=== PATIENT | male | born 1965 | race Caucasian/White ===

== ENCOUNTER 2016-10-13 10:35 | Emergency (ER) | payer MEDICAID ==
[~2016-10-13] VITALS: Ht 188 cm; Wt 85.5 kg
[~2016-10-13 10:35] MED LIST: ACCUTES19 XX; AMIT50TA13 PO; DOCU1CAP39 PO; FLUC100T41 PO; KCL20 PO; LEVEMIR SQ; LEVO150T7 PO; LYRI75CA PO; NOVOLOGSS SQ; PRIL10CA PO; SUCR1S PO
[2016-10-13 10:36] VITALS: BP 125/77; PULSE 90; RESP 15; TEMP 98; O2SAT 98
[2016-10-13] MEDS ORDERED: PREG300 PO (11:29)
[2016-10-13] MEDS ORDERED: CARA1TAB6 PO (11:29)
[2016-10-13] MEDS ORDERED: COLA100C3 PO (11:29)
[2016-10-13] MEDS ORDERED: AMIT50TA3 PO (11:29)
[2016-10-13] MEDS ORDERED: POTA-163 PO (11:29)
[2016-10-13] MEDS ORDERED: LEVEMIR SQ (11:29)
[2016-10-13] MEDS ORDERED: LEVO150T7 PO (11:29)
[2016-10-13] MEDS ORDERED: PANT20 PO (11:29)
[2016-10-13] MEDS ORDERED: NOVOINJ3 SQ (11:29)
--- NOTE | 2016-10-13 11:35 | PD ---
HPI Chief Complaint: Laceration/Skin Injury Time Seen by Provider: 11:35 Travel History International Travel<30 days: No Contact w/Intl Traveler<30days: No Traveled to known affect area: No History of Present Illness HPI 50-year-old male presents to the emergency Department with complaint of a mall wounds to his left foot that he cannot get the bleeding to stop. He dropped a cup on his foot yesterday and has tried applying pressure with continued bleeding. Reports seeing up-to-date on his tetanus sensation. Denies anticoagulants. Denies paresthesias, loss of sensation, decreased range motion , decreased strength to the affected extremity. No known allergies. History of diabetes and peripheral neuropathy. No other modifying factors or associated signs and symptoms. PFSH Past Medical History Arthritis: Yes Cancer: No Cardiovascular Problems: No Diabetes: Yes Endocrine: Yes Gastrointestinal Disorders: Yes (gastroparesis, GERD) GERD: Yes Genitourinary: No Hiatal Hernia: No Immune Disorder: No Musculoskeletal: Yes (CHRONIC RIGHT SHOULDER PAIN) Neurologic: No Psychiatric: No Respiratory: No Thyroid Disease: No Ulcer: No Past Surgical History Abdominal Surgery: No Cardiac Surgery: No Ear Surgery: No Endocrine Surgery: No Eye Surgery: No Genitourinary Surgery: No Oral Surgery: No Pacemaker: No Thoracic Surgery: No Tonsillectomy: Yes Social History Alcohol Use: Yes (1-2 DRINKS/NIGHT(rum and diet coke)) Tobacco Use: No Substance Use: Yes (marijuana) Allergies-Medications (Allergen,Severity, Reaction): Coded Allergies: No Known Allergies (Verified , 10/13/16) Reported Meds & Prescriptions Reported Meds & Active Scripts Active Reported Carafate (Sucralfate) 1 Gm Tab 1 Gm PO TID On empty stomach Lyrica (Pregabalin) 300 Mg Cap 300 Mg PO BID Potassium Chloride ER (Potassium Chloride) 20 Meq Tab 40 Meq PO DAILY Protonix (Pantoprazole Sodium) 20 Mg Tab 20 Mg PO DAILY Levothyroxine (Levothyroxine Sodium) 150 Mcg Tab 150 Mcg PO DAILY Levemir Inj (Insulin Detemir) 1,000 unit/ 10 ML Vial 30 Units SQ BID Do not mix with any other Insulin. Novolog Flexpen Inj (Insulin Aspart) 300 Unit/3 Ml Pen 10 Units SQ TIDAC Colace (Docusate Sodium) 100 Mg Cap 100 Mg PO BID Amitriptyline (Amitriptyline HCl) 50 Mg Tab 50 Mg PO HS Review of Systems Except as stated in HPI: all other systems reviewed are Neg Physical Exam Narrative GENERAL: Well-nourished, well-developed male patient, in no acute distress SKIN: Warm and dry. Dorsal aspect of left foot with less than 0.5 cm bleeding wound that is without erythema, edema. The left lower extremity is supple and non-tense with 2+ pedal pulses and sensory intact and without erythema or edema. HEAD: Atraumatic. Normocephalic. EYES: Pupils equal and round. No scleral icterus. No injection or drainage. ENT: Mucosa pink and moist. Airway patent. NECK: Trachea midline. CARDIOVASCULAR: Regular rate. RESPIRATORY: No accessory muscle use. GASTROINTESTINAL: Rounded. MUSCULOSKELETAL: No obvious deformities. No clubbing. No cyanosis. No edema. NEUROLOGICAL: Awake and alert. Oriented 3. No obvious cranial nerve deficits. Motor grossly within normal limits. Normal speech. PSYCHIATRIC: Appropriate mood and affect; insight and judgment normal. Data Data Last Documented VS Vital Signs Date Time Temp Pulse Resp B/P Pulse Ox O2 Delivery O2 Flow Rate FiO2 10/13/16 10:36 98.0 90 15 125/77 98 MDM Medical Decision Making Medical Screen Exam Complete: Yes Emergency Medical Condition: Yes Medical Record Reviewed: Yes Differential Diagnosis Bleeding from wound, contusion, laceration Narrative Course 50-year-old male with a small less than 0.5 cm wound to the dorsal aspect of the left foot that has continued bleeding since yesterday after dropping a cup on his foot. Denies anticoagulants. Nonadhesive pressure dressing applied. Bleeding controlled. A small amount of blood noted after removal of the adhesive Rusher dressing. Wound seal applied. Bleeding stopped. Nonadhesive dressings given to patient in case bleeding starts again. Patient was monitored in the ER for approximately 15-20 minutes after bleeding stopped without restart of bleeding. Patient verbalizes understanding and agreement with treatment plan. Patient is medically cleared and stable for discharge. Discussed reasons to return to the emergency department. Instructed patient to follow up with primary care provider. Patient agrees with treatment plan. The patients vital signs are stable and the patient is stable for outpatient follow- up and treatment. Patient discharged home, stable and in no acute distress. Diagnosis Primary Impression: Bleeding from wound Referrals: Primary Care Physician Patient Instructions: Acute Wound Care (ED), General Instructions Departure Forms: Tests/Procedures, Work Release Enter return to work date: Oct 14, 2016 Additional Instructions: Follow-up with primary care provider Return to the emergency department immediately with worsening of symptoms Med/Other Pt SpecificInfo: No Change to Meds, No Meds Exist/No RX given Disposition: 01 DISCHARGE HOME Condition: Stable Fozia Lauren Oct 13, 2016 11:35
== END 2016-10-13 12:30 | disposition home or self-care (01) ==
LOC: NETRI 10:35
DX: S91.312A Laceration without foreign body, left foot, initial encounter (principal); E11.42 Type 2 diabetes mellitus with diabetic polyneuropathy; Z79.4 Long term (current) use of insulin; X58.XXXA Exposure to other specified factors, initial encounter; Y93.9 Activity, unspecified; Y92.9 Unspecified place or not applicable; Y99.9 Unspecified external cause status
CPT/HCPCS: 12001

== ENCOUNTER 2017-07-05 11:14 | Inpatient (IN) | payer MEDICAID ==
[2017-07-05] VITALS (7 sets, daily range): BP systolic 94–142; BP diastolic 52–71; PULSE 82–99; RESP 18–30; TEMP 97.4–97.9; O2SAT 96–97
[~2017-07-05] VITALS: Ht 188 cm; Wt 75.5 kg
[~2017-07-05 11:14] MED LIST changes: -ACCUTES19 XX; -AMIT50TA13 PO; +AMIT50TA3 PO; +CARA1TAB6 PO; +COLA100C3 PO; -DOCU1CAP39 PO; -FLUC100T41 PO; -KCL20 PO; -LYRI75CA PO; +NOVOINJ3 SQ; -NOVOLOGSS SQ; +PANT20 PO; +POTA-163 PO; +PREG300 PO; -PRIL10CA PO; -SUCR1S PO
[2017-07-05] MEDS ORDERED: ONDANSETRON HCL 4 MG/2 ML VIAL IVP ONE (11:30)
[2017-07-05] MEDS ORDERED: SODIUM CHLOR 0.9% 1000 ML INJ 1,000 ML IV ONE ×3 (11:30→13:15)
[2017-07-05] MEDS ORDERED: PANTOPRAZOLE SODIUM 40 MG VIAL IV PUSH ONE (11:30)
--- NOTE | 2017-07-05 11:35 | PD ---
HPI Chief Complaint: Diabetic Time Seen by Provider: 11:17 Travel History International Travel<30 days: No Contact w/Intl Traveler<30days: No Traveled to known affect area: No History of Present Illness HPI 51 year old male presents to the emergency department for evaluation of epigastric abdominal pain, hyperglycemia. His at bedside gives most of the information. Patient started with nausea, vomiting yesterday. She gave him peeking soda and water which resolved the vomiting. However, he still nauseated. He reports epigastric abdominal pain, unable to read at this time. Patient states is constant. He denies any fevers or chills. His reports that he has a history of chest pain for the past year, but the patient denies any chest pain this time. He does feel short of breath. Patient's gave him 30 units of Levemir at 9 AM this morning. EMS given 1 L normal saline IV bolus. Patient also has history of pancreatitis with similar symptoms. No radiation of the pain. Patient is in moderate distress, moderate severity. No exacerbating or alleviating factors. His also reports he has been having a dry cough recently. PFSH Past Medical History Arthritis: Yes Cancer: No Cardiovascular Problems: No High Cholesterol: Yes Chest Pain: Yes Diabetes: Yes Patient Takes Glucophage: No Diminished Hearing: No Endocrine: Yes Gastrointestinal Disorders: Yes (gastroparesis, GERD) GERD: Yes Genitourinary: No Hiatal Hernia: No Immune Disorder: No Musculoskeletal: Yes (CHRONIC RIGHT SHOULDER PAIN) Neurologic: No Psychiatric: No Respiratory: No Pancreatitis: Yes Thyroid Disease: Yes Ulcer: No Tetanus Vaccination: Unknown Influenza Vaccination: Yes ?: Not Past Surgical History Abdominal Surgery: No Cardiac Surgery: No Ear Surgery: No Endocrine Surgery: No Eye Surgery: No Genitourinary Surgery: No Oral Surgery: No Pacemaker: No Thoracic Surgery: No Tonsillectomy: Yes Other Surgery: Yes Social History Alcohol Use: No Tobacco Use: No Substance Use: No Allergies-Medications (Allergen,Severity, Reaction): Coded Allergies: No Known Allergies (Verified Adverse Reaction, Unknown, 07/05/17) Reported Meds & Prescriptions Reported Meds & Active Scripts Active Reported Carafate (Sucralfate) 1 Gm Tab 1 Gm PO TID On empty stomach Lyrica (Pregabalin) 300 Mg Cap 300 Mg PO BID Potassium Chloride ER (Potassium Chloride) 20 Meq Tab 40 Meq PO DAILY Protonix (Pantoprazole Sodium) 20 Mg Tab 20 Mg PO DAILY Levothyroxine (Levothyroxine Sodium) 150 Mcg Tab 150 Mcg PO DAILY Levemir Inj (Insulin Detemir) 1,000 unit/ 10 ML Vial 30 Units SQ BID Do not mix with any other Insulin. Novolog Flexpen Inj (Insulin Aspart) 300 Unit/3 Ml Pen 10 Units SQ TIDAC Colace (Docusate Sodium) 100 Mg Cap 100 Mg PO BID Amitriptyline (Amitriptyline HCl) 50 Mg Tab 50 Mg PO HS Review of Systems ROS Limitations: Clinical Condition Except as stated in HPI: all other systems reviewed are Neg Physical Exam Narrative GENERAL: Well-nourished, well-developed male patient, afebrile. Patient is in moderate distress. SKIN: Focused skin assessment warm/dry. HEAD: Normocephalic. Atraumatic. EYES: No scleral icterus. No injection or drainage. NECK: Supple, trachea midline. No JVD or lymphadenopathy. CARDIOVASCULAR: Regular rate and rhythm without murmurs, gallops, or rubs. RESPIRATORY: Breath sounds equal bilaterally. No accessory muscle use. Lungs sounds are clear to auscultation. Patient is tachypneic. GASTROINTESTINAL: Abdomen soft and nondistended. Patient has tenderness to epigastric region. MUSCULOSKELETAL: No cyanosis, or edema. BACK: Nontender without obvious deformity. No CVA tenderness. Data Data Last Documented VS Vital Signs Date Time Temp Pulse Resp B/P (MAP) Pulse Ox O2 Delivery O2 Flow Rate FiO2 07/05/17 11:29 100 Room Air 07/05/17 11:24 87 27 07/05/17 11:18 97.9 98/53 (68) Orders Orders Electrocardiogram (07/05/17 11:25) Lipase (07/05/17 11:25) Troponin I (07/05/17 11:25) Complete Blood Count With Diff (07/05/17 11:25) Comprehensive Metabolic Panel (07/05/17 11:25) Magnesium (Mg) (07/05/17 11:25) Beta Hydroxybutyrate (Acetone) (07/05/17 11:25) Urinalysis - C+S If Indicated (07/05/17 11:25) Chest, Single Ap (07/05/17 ) Blood Gas Venous (Vbg) (07/05/17 11:25) Creatine Kinase (Cpk) (07/05/17 11:25) Sodium Chlor 0.9% 1000 Ml Inj (Ns 1000 M (07/05/17 11:30) Iv Access Insert/Monitor (07/05/17 11:25) Ecg Monitoring (07/05/17 11:25) Oximetry (07/05/17 11:25) Ondansetron Inj (Zofran Inj) (07/05/17 11:30) Oxygen Administration (07/05/17 11:25) Pantoprazole Inj (Protonix Inj) (07/05/17 11:30) Sodium Chlor 0.9% 1000 Ml Inj (Ns 1000 M (07/05/17 12:45) Sodium Bicarbonate 8.4% Inj (Sodium Bica (07/05/17 12:45) Lactic Acid Sepsis Protocol (07/05/17 12:36) Blood Culture (07/05/17 12:36) Vancomycin Inj (Vancomycin Inj) (07/05/17 12:45) Piperacil-Tazo 3.375 Gm Premix (Zosyn 3. (07/05/17 12:45) Information Technology Data Analyst / Telemetry [id number] (07/05/17 12:55) ^ Insert Iv (07/05/17 12:55) Diet Npo (07/05/17 Lunch) Sodium Chlor 0.9% 1000 Ml Inj (Ns 1000 M (07/05/17 12:55) Dext 5%-Nacl 0.9% 1000 Ml Inj (D5w-Ns 10 (07/05/17 12:55) Insulin Human Regular Inj (Novolin R Inj (07/05/17 13:00) Insulin Regular (Iv Infusion) (Novolin R (07/05/17 13:00) Potassium Chlor 40 Meq Premix (Kcl 40 Me (07/05/17 13:00) Potassium Chlor 40 Meq Premix (Kcl 40 Me (07/05/17 13:00) Potassium Chlor 20 Meq Premix (Kcl 20 Me (07/05/17 13:00) Potassium Chlor 20 Meq Premix (Kcl 20 Me (07/05/17 13:00) Potassium Chlor 20 Meq Premix (Kcl 20 Me (07/05/17 13:00) Potassium Chlor 20 Meq Premix (Kcl 20 Me (07/05/17 13:00) Potassium Chlor 20 Meq Premix (Kcl 20 Me (07/05/17 13:00) Potassium Chlor 20 Meq Premix (Kcl 20 Me (07/05/17 13:00) Sodium Bicarbonate 8.4% Inj (Sodium Bica (07/05/17 13:00) Sodium Bicarbonate 8.4% Inj (Sodium Bica (07/05/17 13:00) Sodium Phosphate Inj (Sodium Phosphate I (07/05/17 13:00) Basic Metabolic Panel (Bmp) (07/05/17 17:55) Basic Metabolic Panel (Bmp) (07/05/17 23:55) Basic Metabolic Panel (Bmp) (07/06/17 05:55) Basic Metabolic Panel (Bmp) (07/06/17 11:55) Magnesium (Mg) (07/05/17 17:55) Magnesium (Mg) (07/05/17 23:55) Magnesium (Mg) (07/06/17 05:55) Magnesium (Mg) (07/06/17 11:55) Phosphorus (Po4) (07/05/17 17:55) Phosphorus (Po4) (07/05/17 23:55) Phosphorus (Po4) (07/06/17 05:55) Phosphorus (Po4) (07/06/17 11:55) Beta Hydroxybutyrate (Acetone) (07/05/17 23:55) Beta Hydroxybutyrate (Acetone) (07/06/17 11:55) Potassium, Serum (K) (07/05/17 12:55) Potassium, Serum (K) (07/05/17 13:07) Sodium Chlor 0.9% 1000 Ml Inj (Ns 1000 M (07/05/17 13:15) NPO (07/05/17 13:08) Ct Abd/Pel W/O Iv Contrast (07/05/17 ) Admit Order (Ed Use Only) (07/05/17 13:14) Labs Laboratory Tests Test 07/05/17 11:30 07/05/17 12:00 07/05/17 13:00 White Blood Count 24.5 TH/MM3 Red Blood Count 4.45 MIL/MM3 Hemoglobin 12.9 GM/DL Hematocrit 45.4 % Mean Corpuscular Volume 102.1 FL Mean Corpuscular Hemoglobin 29.0 PG Mean Corpuscular Hemoglobin Concent 28.4 % Red Cell Distribution Width 16.4 % Platelet Count 418 TH/MM3 Mean Platelet Volume 8.8 FL Neutrophils (%) (Auto) 76.5 % Lymphocytes (%) (Auto) 10.4 % Monocytes (%) (Auto) 12.7 % Eosinophils (%) (Auto) 0.1 % Basophils (%) (Auto) 0.3 % Neutrophils # (Auto) 18.7 TH/MM3 Lymphocytes # (Auto) 2.5 TH/MM3 Monocytes # (Auto) 3.1 TH/MM3 Eosinophils # (Auto) 0.0 TH/MM3 Basophils # (Auto) 0.1 TH/MM3 CBC Comment AUTO DIFF Differential Total Cells Counted 100 Neutrophils % (Manual) 71 % Band Neutrophils % 11 % Lymphocytes % 12 % Monocytes % 3 % Neutrophils # (Manual) 20.8 TH/MM3 Metamyelocytes 2 % Myelocytes 1 % Nucleated Red Blood Cells 1 /100 WBC Differential Comment FINAL DIFF MANUAL Toxic Vacuolation Platelet Estimate NORMAL Platelet Morphology Comment NORMAL Blood Urea Nitrogen 75 MG/DL Creatinine 3.25 MG/DL Random Glucose 942 MG/DL Total Protein 8.9 GM/DL Albumin 3.0 GM/DL Calcium Level 8.3 MG/DL Magnesium Level 3.7 MG/DL Alkaline Phosphatase 157 U/L Aspartate Amino Transf (AST/SGOT) 39 U/L Alanine Aminotransferase (ALT/SGPT) 20 U/L Total Bilirubin 0.5 MG/DL Sodium Level 123 MEQ/L Potassium Level 6.7 MEQ/L Chloride Level 86 MEQ/L Carbon Dioxide Level LESS THAN 5.0 MEQ/L Anion Gap 32 MEQ/L Estimat Glomerular Filtration Rate 20 ML/MIN Total Creatine Kinase 201 U/L Troponin I 0.03 NG/ML Lipase 79114 U/L B-Hydroxybutyrate 15.97 MMOL/L Urine Color LIGHT-YELLOW Urine Turbidity CLEAR Urine pH 5.0 Urine Specific [place] 1.018 Urine Protein TRACE mg/dL Urine Glucose (UA) 1000 mg/dL Urine Ketones 80 mg/dL Urine Occult Blood TRACE Urine Nitrite NEG Urine Bilirubin NEG Urine Urobilinogen LESS THAN 2.0 MG/DL Urine Leukocyte Esterase NEG Urine RBC 1 /hpf Urine WBC 2 /hpf Urine Squamous Epithelial Cells <1 /hpf Urine Hyaline Casts 3 /lpf Urine Mucus FEW /lpf Microscopic Urinalysis Comment CULT NOT INDICATED Blood Gas Puncture Site DRAWN BY RN Blood Gas Patient Temperature 98.6 Venous Blood pH 6.97 Venous Blood Partial Pressure CO2 15 mmHg Venous Blood Partial Pressure O2 74 mmHg Venous Blood HCO3 3 mmol/L Venous Blood Oxygen Saturation 84 % Venous Blood Oxygen Content 11.8 Vol % Venous Blood Base Excess -26.3 mmol/L Oxygen Delivery Device ROOM AIR Blood Gas Inspired Oxygen 21 % MDM Medical Decision Making Medical Screen Exam Complete: Yes Emergency Medical Condition: Yes Medical Record Reviewed: Yes Interpretation(s) Last Impressions Chest X-Ray 07/05/17 0000 Signed Impressions: Service Date/Time: Wednesday, July 05, 2017 11:43 - CONCLUSION: 1. Bibasilar densities greater right lower lobe. Dave Cui MD Differential Diagnosis DKA vs. hyperglycemia vs. pancreatitis vs. electrolyte abnormality Narrative Course 51-year-old male presents to the emergency department for hyperglycemia. Patient's given 30 units of Levemir at 9 AM this morning. He received 1 L normal saline IV bolus via EMS. EKG, CBC, CMP, magnesium, CK, troponin, lipase , beta hydroxybutyrate, UA are ordered and pending. VBG is ordered and pending. Patient is given second liter normal saline IV bolus, Zofran 4 mg IV, Protonix 40 mg IV. EKG shows sinus rhythm, no acute ST changes. CBC shows leukocytosis 24.5, band neutrophils 11. VBG shows pH 6.97, bicarbonate 3. UA shows 1000 glucose, 80 ketones. Chest x-ray shows bibasilar densities, greater right lower lobe. Blood cultures 2 and lactic acid are ordered and pending. Patient is given 1 amp of sodium bicarbonate, third liter IV normal saline bolus, vancomycin 1 g, Zosyn 3.375 g IV. Awaiting chemistry results. CMP shows hyponatremia 123, hyperkalemia of 6.7 but moderately hemolysis noted, bicarbonate less than 5, anion gap of 32, BUN 75, creatinine 3.25, glucose 942. Magnesium is 3.7. CK is 201. Troponin is 0.03. Lipase is 10,082. Beta hydroxybutyrate is 15.97. Lactic acid is pending. DKA protocol is started. Patient started on insulin drip. Dr. De Dios, candle wicker, accepted admission. Sepsis Criteria SIRS Criteria (2 or more): RR > 20 or PaCO2 < 32, WBC > 29383, < 4000 or > 10 % bands Sepsis Criteria (SIRS+source): Infect source susp/known Diagnosis Primary Impression: DKA (diabetic ketoacidoses) Qualified Codes: E10.10 - Type 1 diabetes mellitus with ketoacidosis without coma Additional Impressions: Pneumonia Qualified Codes: J18.9 - Pneumonia, unspecified organism Sepsis Qualified Codes: A41.9 - Sepsis, unspecified organism Acute pancreatitis Qualified Codes: K85.90 - Acute pancreatitis without necrosis or infection, unspecified Admitting Information Admitting Physician Requests: Admit Brianna Noland Jul 05, 2017 11:35
--- NOTE | 2017-07-05 11:55 | RADRPT ---
EXAM DATE/TIME: 07/05/2017 11:43 [facility] COMPARISON: No previous studies available for comparison. INDICATIONS : Short of breath. MEDICAL HISTORY : Chronic obstructive pulmonary disease. SURGICAL HISTORY : None. ENCOUNTER: Initial ACUITY: 2 days PAIN SCORE: 0/10 LOCATION: Bilateral chest FINDINGS: A single view of the chest demonstrates bibasilar densities, greater right lower lobe. Heart normal i n size The cardiomediastinal contours are unremarkable. Osseous structures are intact. CONCLUSION: 1. Bibasilar densities greater right lower lobe. Dave Cui MD on July 05, 2017 at 11:53 Board Certified Radiologist. This report was verified electronically.
[2017-07-05 12:14] LABS: BLOOD GAS VENOUS BASE EXCESS -26.3 mmol/L (-2-2); BLOOD GAS VENOUS HCO3 3 mmol/L (22-26); BLOOD GAS VENOUS O2 CONTENT 11.8 Vol % (9.0-17.0); BLOOD GAS VENOUS O2 HGB SAT 84 % (70-76); BLOOD GAS VENOUS PCO2 15 mmHg (44-48); BLOOD GAS VENOUS PO2 74 mmHg (35-40); BLOOD GAS VENOUS pH 6.97 (7.360-7.400); TEMP CORR TO 98.6
[2017-07-05 12:15] LABS: CRITICAL VALUE YES; FIO2 21 %; OXYGEN DEVICE ROOM AIR
[2017-07-05 12:22] LABS: BLOOD, URINE TRACE (NEG); COMMENT (UR) CULT NOT INDICATED; CULTURE IF INDICATED CULT NOT INDICATED; GLUCOSE,URINE 1000 mg/dL (NEG); HYALINE CAST, URINE 3 /lpf (RARE); KETONE, URINE 80 mg/dL (NEG); MUCUS URINE FEW /lpf (OCC); NITRITE,URINE NEG (NEG); SQUAMOUS EPITHELIAL CELL URINE <1 /hpf (0-5); URINE COLOR LIGHT-YELLOW (YELLW/STRAW)
[2017-07-05 12:22] LABS: AUTOMATED NEUTROPHIL # 18.7 TH/MM3 (1.8-7.7); BASOPHIL # 0.1 TH/MM3 (0-0.2); BASOPHIL % 0.3 % (0.0-2.0); EOSINOPHIL % 0.1 % (0.0-4.0); HEMATOCRIT 45.4 % (39.0-51.0); LYMPH % 10.4 % (9.0-44.0); LYMPHOCYTE # 2.5 TH/MM3 (1.0-4.8); MEAN CELL VOLUME 102.1 FL (80.0-100.0); MONO % 12.7 % (0.0-8.0); NEUT % 76.5 % (16.0-70.0); PLATELET COUNT 418 TH/MM3 (150-450); RED BLOOD COUNT 4.45 MIL/MM3 (4.50-5.90); RED CELL DISTRIBUTION WIDTH 16.4 % (11.6-17.2); WHITE BLOOD COUNT 24.5 TH/MM3 (4.0-11.0)
[2017-07-05 12:30] LABS: HEMO FLAGS AUTO DIFF; MEAN CORPUSCULAR HGB CONC 28.4 % (32.0-36.0)
--- NOTE | 2017-07-05 12:42 | PD ---
Physical Exam Narrative I, Dr. Sevilla, have reviewed the advance practice practitioner's documentation and am in agreement, met with the patient face to face, made the diagnosis, and the medical decision making was done by me. *My assessment and Findings: DKA vs. Pneumonia vs. UTI 51yo M who is insulin dependent here with c/o not feeling well for 2 days. Pt was vomiting yesterday and has been having cough for a while. Has a history of pancreatitis but quit alcohol 1 year ago. Pt has not been using his novolog because he has been sick. Took levemir today. GENERAL: 51yo M in moderate distress. SKIN: Dehydrated. HEAD: Atraumatic. Normocephalic. EYES: Pupils equal and round. No scleral icterus. No injection or drainage. ENT: No nasal bleeding or discharge. NECK: Trachea midline. No JVD. CARDIOVASCULAR: Regular rate and rhythm. No murmur appreciated. RESPIRATORY: + accessory muscle use. Kussmaul breathing. Saturating at 100% on RA. GASTROINTESTINAL: Abdomen soft, mild epigastric ttp. No rebound tenderness or guarding. MUSCULOSKELETAL: No obvious deformities. No clubbing. No cyanosis. No edema. NEUROLOGICAL: Awake and alert. No obvious cranial nerve deficits. Motor grossly within normal limits. Normal speech. PSYCHIATRIC: Appropriate mood and affect; insight and judgment normal. Pt was given NS IVF by EVAC and 2 more liters of NS IVF given here. Labs reviewed, leukocytosis at 24.5. H/h 12.9/45.4 which is baseline. Bandemia at 11%. Pt empirically covered with vancomycin and zosyn and blood cultures and lactic acid was drawn. Glucose elevated at 942. BUN/creatinine elevated at 75/ 3.25. Increased anion gap of 32 with CO2 less than 5. Potassium is 6.7 but moderately hemolyzed. Pt most likely have total body hypokalemia and ordered repeat K. In the mean time, will start insulin drip. Repeat K is 5.9. CXR showed bibasilar densities greater right lower lobe[place] [address] a/p showed bibasilar interstitial opacities. No acute inflammatory process. ABG showed pH 6.97. HCO3 is 3. Sodium bicarb ordered. Pt clinically have DKA, pancreatitis and pneumonia. Pt has two large bore peripheral IVs. Accepted to Dr. De Dios's service. Data Data Last Documented VS Vital Signs Date Time Temp Pulse Resp B/P (MAP) Pulse Ox O2 Delivery O2 Flow Rate FiO2 07/05/17 11:29 100 Room Air 07/05/17 11:24 87 27 07/05/17 11:18 97.9 98/53 (68) Orders Orders Electrocardiogram (07/05/17 11:25) Lipase (07/05/17 11:25) Troponin I (07/05/17 11:25) Complete Blood Count With Diff (07/05/17 11:25) Comprehensive Metabolic Panel (07/05/17 11:25) Magnesium (Mg) (07/05/17 11:25) Beta Hydroxybutyrate (Acetone) (07/05/17 11:25) Urinalysis - C+S If Indicated (07/05/17 11:25) Chest, Single Ap (07/05/17 ) Blood Gas Venous (Vbg) (07/05/17 11:25) Creatine Kinase (Cpk) (07/05/17 11:25) Sodium Chlor 0.9% 1000 Ml Inj (Ns 1000 M (07/05/17 11:30) Iv Access Insert/Monitor (07/05/17 11:25) Ecg Monitoring (07/05/17 11:25) Oximetry (07/05/17 11:25) Ondansetron Inj (Zofran Inj) (07/05/17 11:30) Oxygen Administration (07/05/17 11:25) Pantoprazole Inj (Protonix Inj) (07/05/17 11:30) Sodium Chlor 0.9% 1000 Ml Inj (Ns 1000 M (07/05/17 12:45) Sodium Bicarbonate 8.4% Inj (Sodium Bica (07/05/17 12:45) Lactic Acid Sepsis Protocol (07/05/17 12:36) Blood Culture (07/05/17 12:36) Vancomycin Inj (Vancomycin Inj) (07/05/17 12:45) Piperacil-Tazo 3.375 Gm Premix (Zosyn 3. (07/05/17 12:45) Product Design Specialist / Telemetry [id number] (07/05/17 12:55) ^ Insert Iv (07/05/17 12:55) Diet Npo (07/05/17 Lunch) Sodium Chlor 0.9% 1000 Ml Inj (Ns 1000 M (07/05/17 12:55) Dext 5%-Nacl 0.9% 1000 Ml Inj (D5w-Ns 10 (07/05/17 12:55) Insulin Human Regular Inj (Novolin R Inj (07/05/17 13:00) Insulin Regular (Iv Infusion) (Novolin R (07/05/17 13:00) Potassium Chlor 40 Meq Premix (Kcl 40 Me (07/05/17 13:00) Potassium Chlor 40 Meq Premix (Kcl 40 Me (07/05/17 13:00) Potassium Chlor 20 Meq Premix (Kcl 20 Me (07/05/17 13:00) Potassium Chlor 20 Meq Premix (Kcl 20 Me (07/05/17 13:00) Potassium Chlor 20 Meq Premix (Kcl 20 Me (07/05/17 13:00) Potassium Chlor 20 Meq Premix (Kcl 20 Me (07/05/17 13:00) Potassium Chlor 20 Meq Premix (Kcl 20 Me (07/05/17 13:00) Potassium Chlor 20 Meq Premix (Kcl 20 Me (07/05/17 13:00) Sodium Bicarbonate 8.4% Inj (Sodium Bica (07/05/17 13:00) Sodium Bicarbonate 8.4% Inj (Sodium Bica (07/05/17 13:00) Sodium Phosphate Inj (Sodium Phosphate I (07/05/17 13:00) Basic Metabolic Panel (Bmp) (07/05/17 23:55) Basic Metabolic Panel (Bmp) (07/06/17 05:55) Basic Metabolic Panel (Bmp) (07/06/17 11:55) Magnesium (Mg) (07/05/17 23:55) Magnesium (Mg) (07/06/17 05:55) Magnesium (Mg) (07/06/17 11:55) Phosphorus (Po4) (07/05/17 23:55) Phosphorus (Po4) (07/06/17 05:55) Phosphorus (Po4) (07/06/17 11:55) Beta Hydroxybutyrate (Acetone) (07/05/17 23:55) Beta Hydroxybutyrate (Acetone) (07/06/17 11:55) Potassium, Serum (K) (07/05/17 12:55) Sodium Chlor 0.9% 1000 Ml Inj (Ns 1000 M (07/05/17 13:15) NPO (07/05/17 13:08) Ct Abd/Pel W/O Iv Contrast (07/05/17 ) Admit Order (Ed Use Only) (07/05/17 13:14) Labs Laboratory Tests Test 07/05/17 11:30 07/05/17 12:00 07/05/17 13:00 White Blood Count 24.5 TH/MM3 Red Blood Count 4.45 MIL/MM3 Hemoglobin 12.9 GM/DL Hematocrit 45.4 % Mean Corpuscular Volume 102.1 FL Mean Corpuscular Hemoglobin 29.0 PG Mean Corpuscular Hemoglobin Concent 28.4 % Red Cell Distribution Width 16.4 % Platelet Count 418 TH/MM3 Mean Platelet Volume 8.8 FL Neutrophils (%) (Auto) 76.5 % Lymphocytes (%) (Auto) 10.4 % Monocytes (%) (Auto) 12.7 % Eosinophils (%) (Auto) 0.1 % Basophils (%) (Auto) 0.3 % Neutrophils # (Auto) 18.7 TH/MM3 Lymphocytes # (Auto) 2.5 TH/MM3 Monocytes # (Auto) 3.1 TH/MM3 Eosinophils # (Auto) 0.0 TH/MM3 Basophils # (Auto) 0.1 TH/MM3 CBC Comment AUTO DIFF Differential Total Cells Counted 100 Neutrophils % (Manual) 71 % Band Neutrophils % 11 % Lymphocytes % 12 % Monocytes % 3 % Neutrophils # (Manual) 20.8 TH/MM3 Metamyelocytes 2 % Myelocytes 1 % Nucleated Red Blood Cells 1 /100 WBC Differential Comment FINAL DIFF MANUAL Toxic Vacuolation Platelet Estimate NORMAL Platelet Morphology Comment NORMAL Blood Urea Nitrogen 75 MG/DL Creatinine 3.25 MG/DL Random Glucose 942 MG/DL Total Protein 8.9 GM/DL Albumin 3.0 GM/DL Calcium Level 8.3 MG/DL Magnesium Level 3.7 MG/DL Alkaline Phosphatase 157 U/L Aspartate Amino Transf (AST/SGOT) 39 U/L Alanine Aminotransferase (ALT/SGPT) 20 U/L Total Bilirubin 0.5 MG/DL Sodium Level 123 MEQ/L Potassium Level 6.7 MEQ/L 5.9 MEQ/L Chloride Level 86 MEQ/L Carbon Dioxide Level LESS THAN 5.0 MEQ/L Anion Gap 32 MEQ/L Estimat Glomerular Filtration Rate 20 ML/MIN Total Creatine Kinase 201 U/L Troponin I 0.03 NG/ML Lipase 54541 U/L B-Hydroxybutyrate 15.97 MMOL/L Urine Color LIGHT-YELLOW Urine Turbidity CLEAR Urine pH 5.0 Urine Specific [place] 1.018 Urine Protein TRACE mg/dL Urine Glucose (UA) 1000 mg/dL Urine Ketones 80 mg/dL Urine Occult Blood TRACE Urine Nitrite NEG Urine Bilirubin NEG Urine Urobilinogen LESS THAN 2.0 MG/DL Urine Leukocyte Esterase NEG Urine RBC 1 /hpf Urine WBC 2 /hpf Urine Squamous Epithelial Cells <1 /hpf Urine Hyaline Casts 3 /lpf Urine Mucus FEW /lpf Microscopic Urinalysis Comment CULT NOT INDICATED Blood Gas Puncture Site DRAWN BY RN Blood Gas Patient Temperature 98.6 Venous Blood pH 6.97 Venous Blood Partial Pressure CO2 15 mmHg Venous Blood Partial Pressure O2 74 mmHg Venous Blood HCO3 3 mmol/L Venous Blood Oxygen Saturation 84 % Venous Blood Oxygen Content 11.8 Vol % Venous Blood Base Excess -26.3 mmol/L Oxygen Delivery Device ROOM AIR Blood Gas Inspired Oxygen 21 % Lactic Acid Level 2.0 mmol/L MDM Supervised Visit with EMY: Yes Interpretation(s) EKG: NSR 84bpm. LAD. No ST segment elevation or depression. Critical Care Narrative Aggregate critical care time was 40 minutes. Time to perform other separately billable procedures was not included in the critical care time. My time did not include minutes spent treating any other patients simultaneously or on activities that did not directly contribute to the patient's treatment. The services I provided to this patient were to treat and/or prevent clinically significant deterioration that could result in: cardiovascular collapse or . I provided critical care services requiring my management, as noted below: Chart data review, documentation time, medication orders and management, vital sign assessments/reviewing monitor data, ordering and reviewing lab tests, ordering and interpreting/reviewing x-rays and diagnostic studies, care of the patient and discussion of the patient with the admitting physicians. Diagnosis Primary Impression: DKA (diabetic ketoacidoses) Qualified Codes: E10.10 - Type 1 diabetes mellitus with ketoacidosis without coma Additional Impression: Acute pancreatitis Qualified Codes: K85.90 - Acute pancreatitis without necrosis or infection, unspecified Admitting Information Admitting Physician Requests: Admit Luda Sevilla DO Jul 05, 2017 12:42
[2017-07-05] MEDS ORDERED: VANCOMYCIN INJ 1,000 MG in SODIUM CHLOR 0.9% 250 ML INJ 250 ML IV ONE (12:45)
[2017-07-05] MEDS ORDERED: PIPERACIL-TAZO 3.375 GM PREMIX 50 ML IV ONE (12:45)
[2017-07-05] MEDS ORDERED: SODIUM BICARBONATE 8.4% SOLN 50 MEQ/50 ML VIAL IV PUSH PRN ×3 (12:45→13:00)
[2017-07-05 12:51] LABS: ALT (GPT) 20 U/L (12-78); ANION GAP 32 MEQ/L (5-15); AST (GOT) 39 U/L (15-37); BICARBONATE LESS THAN 5.0 MEQ/L (21.0-32.0); BLOOD UREA NITROGEN 75 MG/DL (7-18); CHLORIDE 86 MEQ/L (98-107); GLOMERULAR FILTRATION RATE 20 ML/MIN (>89); MAGNESIUM 3.7 MG/DL (1.5-2.5); TOTAL BILIRUBIN ADULT 0.5 MG/DL (0.2-1.0)
[2017-07-05 12:54] LABS: POTASSIUM 6.7 MEQ/L (3.5-5.1); SODIUM (NA) 123 MEQ/L (136-145)
[2017-07-05] MEDS ORDERED: DEXT 5%-NACL 0.9% 1000 ML INJ 1,000 ML IV SCH (12:55)
[2017-07-05 12:58] LABS: ALKALINE PHOSPHATASE 157 U/L (45-117); BANDS 11 % (0-6); BETA-HYDROXYBUTYRATE 15.97 MMOL/L (0.00-0.39); CORRECTED NUCLEATED RBC 1 /100 WBC (0-0); CREATINE KINASE 201 U/L (39-308); METAMYELOCYTES 2 % (0-1); MYELOCYTES 1 % (0-0); NEUTROPHIL # MANUAL DIFF 20.8 TH/MM3 (1.8-7.7); POLYS (SEG NEUTROPHILS) 71 % (16-70); WBC DIFF SAMPLE 100
[2017-07-05] MEDS ORDERED: INSULIN HUMAN REGULAR 1,000 UNITS/10 ML VIAL IV PUSH ONE ×3 (13:00→18:00)
[2017-07-05] MEDS ORDERED: SODIUM PHOSPHATE INJ 15 MMOL in SODIUM CHLORIDE 0.9% INJ 100 ML IV PRN (13:00)
[2017-07-05] MEDS ORDERED: POTASSIUM CHLOR 20 MEQ PREMIX 100 ML IV PRN ×6 (13:00)
[2017-07-05] MEDS ORDERED: POTASSIUM CHLOR 40 MEQ PREMIX 100 ML IV PRN ×2 (13:00)
[2017-07-05] MEDS ORDERED: INSULIN REGULAR (IV INFUSION) 100 UNITS in SODIUM CHLORIDE 0.9% INJ 99 ML IV PRN (13:00)
[2017-07-05 13:01] LABS: PLATELET ESTIMATE SMEAR NORMAL (NORMAL); PLATELET MORPHOLOGY NORMAL (NORMAL); SCAN/DIFF FINAL DIFF MANUAL
[2017-07-05] MEDS: SODIUM CHLOR 0.9% 1000 ML INJ 1,000 ML IV SCH ×2 (13:22→17:34)
[2017-07-05] MEDS ORDERED: MISCELLANEOUS NURSING INFORMATION XX SCH (13:30)
[2017-07-05] MEDS ORDERED: ACETAMINOPHEN 325 MG TAB PO PRN (13:30)
[2017-07-05] MEDS ORDERED: MAGNESIUM HYDROXIDE SUSP 30 ML CUP PO PRN (13:30)
[2017-07-05] MEDS ORDERED: LACTULOSE SYRUP 20 GM/30 ML CUP PO PRN (13:30)
[2017-07-05] MEDS ORDERED: CHLORHEXIDINE GLUCONATE 2 % 1 PACK (2 CLOTHS) TOP PRN (13:30)
[2017-07-05] MEDS ORDERED: ONDANSETRON HCL 4 MG/2 ML VIAL IV PUSH PRN (13:30)
[2017-07-05] MEDS ORDERED: SENNOSIDES 8.6 MG TAB PO PRN (13:30)
[2017-07-05] MEDS ORDERED: BISACODYL 10 MG SUPP RECTAL PRN (13:30)
[2017-07-05] MEDS ORDERED: SODIUM CHLORIDE 0.9% FLUSH 10 ML FLUSH IV FLUSH PRN (13:30)
[2017-07-05] MEDS ORDERED: RESP: ALBUTEROL 2.5 MG/3 ML NEB (PRN) INH (13:30)
[2017-07-05] MEDS ORDERED: VANCOMYCIN INJ 1,250 MG in SODIUM CHLOR 0.9% 250 ML INJ 250 ML IV ONE (13:45)
--- NOTE | 2017-07-05 13:48 | HHI.HP ---
[facility] Service Critical Care Medicine Primary Care Physician Corbin Jerome, DO Admission Diagnosis DKA, pneumonia, sepsis, acute pancreatitis Diagnosis: (1) Hypermagnesemia Diagnosis: Principal (2) Leukocytosis Diagnosis: Principal (3) Elevated AST (SGOT) Diagnosis: Principal (4) Diabetic gastroparesis Diagnosis: Secondary (5) Diabetic neuropathy Diagnosis: Secondary (6) Acute kidney injury Diagnosis: Principal (7) Hyperkalemia Diagnosis: Principal (8) Elevated beta-hydroxybutyrate Diagnosis: Principal (9) Gastroesophageal reflux disease Diagnosis: Secondary (10) Dyslipidemia Diagnosis: Secondary (11) Community acquired pneumonia Diagnosis: Principal (12) DKA (diabetic ketoacidoses) Diagnosis: Principal (13) Acute pancreatitis Diagnosis: Principal (14) High anion gap metabolic acidosis Diagnosis: Principal (15) Sepsis Diagnosis: Principal Chief Complaint: Infused/altered mental status Travel History International Travel<30 Days: No Contact w/Intl Traveler <30 Da: No Traveled to Known Affected Are: No Sepsis Criteria SIRS Criteria (2 or more): WBC > 37872, < 4000 or > 10% bands Sepsis Criteria (SIRS+source): Infect source susp/known Severe Sepsis (+one): Organ Dysfunction, Acute Oliguria/Renal Failure Criteria Outcome: Meets severe sepsis criteria History of Present Illness 51 year old male. The admission 07/05/2017. Past medical history includes IDDM with neuropathy and gastroparesis, chronic abdominal pain, dyslipidemia, cervical stenosis, osteoarthritis and hypothyroidism. Today he presents to the emergency department for evaluation of epigastric abdominal pain with recent hyperglycemia. His at bedside gives most of the information. The past 40 hours, patient is visiting nausea and vomiting She gave him baking soda and water which resolved the vomiting.ever, the abdominal pain persists. Sharp epigastric radiating to the back. Patient's gave him 30 units of insulin detemir at 9 AM this morning. EMS given 1 L normal saline IV bolus. Patient also has history of pancreatitis with similar symptoms. His chest x-ray revealed bilateral lower lobe pneumonia. Laboratories reveal leukocytosis of 24,000. Macrocytosis. Blood sugar 942. Patient low sodium with a potassium of 6.7.EKG with no T changes. Beta hydroxybutyrate was 16. Patient received a total of 3 L normal saline E Toni and was started on DKA protocol including 8 units insulin 1 and DKA insulin drip per protocol 0.1 units per kilogram per hour. Patient remains confused. CT abdomen/pelvis pending Review of Systems ROS Limitations: Clinical Condition, Altered Mental Status Past Family Social History Allergies: Coded Allergies: No Known Allergies (Verified Allergy, Unknown, 07/05/17) Past Medical History IDDM with neuropathy and gastroparesis Recurrent pancreatitis Cervical stenosis Dyslipidemia currently not on medications due to adverse drug effect Gastroesophageal reflux disease Osteoarthritis Chronic pain syndrome Hypothyroidism Past Surgical History T&A Right rotator cuff repair Reported Medications Carafate (Sucralfate) 1 Gm Tab 1 Gm PO TID On empty stomach Lyrica (Pregabalin) 300 Mg Cap 300 Mg PO BID Potassium Chloride ER (Potassium Chloride) 20 Meq Tab 40 Meq PO DAILY Protonix (Pantoprazole Sodium) 20 Mg Tab 20 Mg PO DAILY Levothyroxine (Levothyroxine Sodium) 150 Mcg Tab 150 Mcg PO DAILY Levemir Inj (Insulin Detemir) 1,000 unit/ 10 ML Vial 30 Units SQ BID Do not mix with any other Insulin. Novolog Flexpen Inj (Insulin Aspart) 300 Unit/3 Ml Pen 10 Units SQ TIDAC Colace (Docusate Sodium) 100 Mg Cap 100 Mg PO BID Amitriptyline (Amitriptyline HCl) 50 Mg Tab 50 Mg PO HS Active Ordered Medications Reviewed in EMR Family History Father is healthy. Mother age 63 of CHF. Brother with bone cancer. Social History 4 years tobacco use at one pack per day quit 30 years ago. Augmentation 2 colic drinks daily. History of THC use. Physical Exam Vital Signs Vital Signs Date Time Temp Pulse Resp B/P (MAP) Pulse Ox O2 Delivery O2 Flow Rate FiO2 07/05/17 11:29 100 Room Air 07/05/17 11:24 87 27 100 Room Air 07/05/17 11:18 97.9 88 25 98/53 (68) Physical Exam GENERAL: 51-year-old male, critically ill currently resting in bed SKIN: Warm and dry. HEAD: Atraumatic. Normocephalic. EYES: Pupils equal and round about 2 mm bilaterally and reactive. No scleral icterus. No injection or drainage. ENT: No nasal bleeding or discharge. Mucous membranes pink and moist. NECK: Trachea midline. No JVD. CARDIOVASCULAR: Tachycardic, RR. S1, S2 no S4. Without murmur RESPIRATORY: Few fine crackles appreciated bilaterally. No wheezing GASTROINTESTINAL: Abdomen soft, tender to palpation epigastric region. Hypoactive bowel sounds. MUSCULOSKELETAL: Extremities without difficulty and peripheral edema. No obvious deformities. NEUROLOGICAL: Awake and alert person only. No obvious cranial nerve deficits. Motor grossly within normal limits. Five out of 5 muscle strength in the arms and legs. Garbled speech. Laboratory Laboratory Tests Test 07/05/17 11:30 07/05/17 12:00 07/05/17 13:00 White Blood Count 24.5 Red Blood Count 4.45 Hemoglobin 12.9 Hematocrit 45.4 Mean Corpuscular Volume 102.1 Mean Corpuscular Hemoglobin 29.0 Mean Corpuscular Hemoglobin Concent 28.4 Red Cell Distribution Width 16.4 Platelet Count 418 Mean Platelet Volume 8.8 Neutrophils (%) (Auto) 76.5 Lymphocytes (%) (Auto) 10.4 Monocytes (%) (Auto) 12.7 Eosinophils (%) (Auto) 0.1 Basophils (%) (Auto) 0.3 Neutrophils # (Auto) 18.7 Lymphocytes # (Auto) 2.5 Monocytes # (Auto) 3.1 Eosinophils # (Auto) 0.0 Basophils # (Auto) 0.1 CBC Comment AUTO DIFF Differential Total Cells Counted 100 Neutrophils % (Manual) 71 Band Neutrophils % 11 Lymphocytes % 12 Monocytes % 3 Neutrophils # (Manual) 20.8 Metamyelocytes 2 Myelocytes 1 Nucleated Red Blood Cells 1 Differential Comment FINAL DIFF MANUAL Toxic Vacuolation Platelet Estimate NORMAL Platelet Morphology Comment NORMAL Blood Urea Nitrogen 75 Creatinine 3.25 Random Glucose 942 Total Protein 8.9 Albumin 3.0 Calcium Level 8.3 Magnesium Level 3.7 Alkaline Phosphatase 157 Aspartate Amino Transf (AST/SGOT) 39 Alanine Aminotransferase (ALT/SGPT) 20 Total Bilirubin 0.5 Sodium Level 123 Potassium Level 6.7 5.9 Chloride Level 86 Carbon Dioxide Level LESS THAN 5.0 Anion Gap 32 Estimat Glomerular Filtration Rate 20 Total Creatine Kinase 201 Troponin I 0.03 Lipase 81762 B-Hydroxybutyrate 15.97 Urine Color LIGHT-YELLOW Urine Turbidity CLEAR Urine pH 5.0 Urine Specific [place] 1.018 Urine Protein TRACE Urine Glucose (UA) 1000 Urine Ketones 80 Urine Occult Blood TRACE Urine Nitrite NEG Urine Bilirubin NEG Urine Urobilinogen LESS THAN 2.0 Urine Leukocyte Esterase NEG Urine RBC 1 Urine WBC 2 Urine Squamous Epithelial Cells <1 Urine Hyaline Casts 3 Urine Mucus FEW Microscopic Urinalysis Comment CULT NOT INDICATED Blood Gas Puncture Site DRAWN BY RN Blood Gas Patient Temperature 98.6 Venous Blood pH 6.97 Venous Blood Partial Pressure CO2 15 Venous Blood Partial Pressure O2 74 Venous Blood HCO3 3 Venous Blood Oxygen Saturation 84 Venous Blood Oxygen Content 11.8 Venous Blood Base Excess -26.3 Oxygen Delivery Device ROOM AIR Blood Gas Inspired Oxygen 21 Date/Time Source Procedure Growth Status 07/05/17 13:00 Blood Peripheral Aerobic Blood Culture Pending Received 07/05/17 13:00 Blood Peripheral Anaerobic Blood Culture Pending Received Result Diagram: 07/05/17 1130 07/05/17 1300 Imaging Microbiology Date/Time Source Procedure Growth Status 07/05/17 13:00 Blood Peripheral Aerobic Blood Culture Pending Received 07/05/17 13:00 Blood Peripheral Anaerobic Blood Culture Pending Received Septic Shock Reassessment Septic shock perfusion: reassessment completed Caprini VTE Risk Assessment Caprini VTE Risk Assessment: Mod/High Risk (score >= 2) Caprini Risk Assessment Model Point Value = 1 Point Value = 2 Point Value = 3 Point Value = 5 Age 41-60 Minor surgery BMI > 25 kg/m2 Swollen legs Varicose veins or History of unexplained or recurrent spontaneous Oral contraceptives or hormone replacement Sepsis (< 1 month) Serious lung disease, including pneumonia (< 1 month) Abnormal pulmonary function Acute myocardial infarction Congestive heart failure (< 1 month) History of inflammatory bowel disease Medical patient at bed rest Age 61-74 Arthroscopic surgery Major open surgery (> 45 min) Laparoscopic surgery (> 45 min) Malignancy Confined to bed (> 72 hours) Immobilizing plaster cast Central venous access Age >= 75 History of VTE Family history of VTE Factor V Leiden Prothrombin [id number] Lupus anticoagulant Anticardiolipin antibodies Elevated serum homocysteine Heparin-induced thrombocytopenia Other congenital or acquired thrombophilia Stroke (< 1 month) Elective arthroplasty Hip, pelvis, or leg fracture Acute spinal cord injury (< 1 month) Prophylaxis Regimen Total Risk Factor Score Risk Level Prophylaxis Regimen 0-1 Low Early ambulation 2 Moderate Order ONE of the following: *Sequential Compression Device (SCD) *Heparin 5000 units SQ BID 3-4 Higher Order ONE of the following medications: *Heparin 5000 units SQ TID *Enoxaparin/Lovenox 40 mg SQ daily (WT < 150 kg, CrCl > 30 mL/min) *Enoxaparin/Lovenox 30 mg SQ daily (WT < 150 kg, CrCl > 10-29 mL/min) *Enoxaparin/Lovenox 30 mg SQ BID (WT < 150 kg, CrCl > 30 mL/min) AND/OR *Sequential Compression Device (SCD) 5 or more Highest Order ONE of the following medications: *Heparin 5000 units SQ TID (Preferred with Epidurals) *Enoxaparin/Lovenox 40 mg SQ daily (WT < 150 kg, CrCl > 30 mL/min) *Enoxaparin/Lovenox 30 mg SQ daily (WT < 150 kg, CrCl > 10-29 mL/min) *Enoxaparin/Lovenox 30 mg SQ BID (WT < 150 kg, CrCl > 30 mL/min) AND *Sequential Compression Device (SCD) Assessment and Plan Assessment and Plan Neuro/Psych: Diabetic neuropathy History of cervical stenosis Altered mental status/acute delirium secondary to DKA EtOH use Holding pregabalin 300 mg twice a day, amitriptyline 50 mg at night in light of altered mental status Acetaminophen as needed for fever/pain 1-10 Thiamine, folate and multivitamin daily. Vitamin bag for today. CV: History dyslipidemia Status post 3 L normal saline in ED. Currently on normal saline at 250 cc an hour for DKA protocol Lipid panel ordered. Results pending. Adverse reaction to prior medications per documentation His troponin 0.03. EKG revealed sinus tachycardia. Nonspecific ST-T changes. Resp: Community-acquired pneumonia Nasal cannula to maintain saturations greater than equal to 92% Incentive spirometry while awake Chest x-ray 07/05 revealed bilateral lower lobe infiltrates right greater than left. GI: Acute pancreatitis lipase greater than 10,000 History of pancreatitis Gastro esophageal reflux disease Patient is currently nothing by mouth Pantoprazole [address] IV daily medication CT abdomen/pelvis pending : No indication for [place] catheter Endo: DKA IDDM Hypothyroidism Currently DKA protocol. Status post agents or insulin. Currently on insulin drip at 0.1 units per kilogram per hour. Adjust per protocol Home medications insulin detemir 30 units twice a day and aspart 10 mg 3 times a day with meals Switch levothyroxine to 75 mics grams IV daily Received 50 mEq sodium bicarbonate in ED. Renal: Acute kidney injury Anion gap metabolic acidosis/respiratory acidosis Baseline creatinine around 0.9. Monitor urine output Accurate I's and O's Heme: Leukocytosis Macrocytosis Monitor CBC daily. Follow trends. No indications for transfusion of blood proximal at this time. ID: Community Acquired pneumonia Piperacillin/tazobactam and vancomycin 1 today. Blood cultures 2, sputum, urine Legionella and pneumococcal antigen and influenza all pending MSK: Osteoarthritis PT evaluate and treat FEN: Hyperkalemia Pseudohyponatremia Elevated magnesium Received bicarbonate, insulin/D50 calcium 1. Recheck in 3 hours Access - Utilize peripheral IV. Central line if indicated Prophylaxis - GI - pantoprazole - DVT- SCD/heparin subcutaneous Critical Care: The total critical care time was 35 minutes. Time to perform other separately billable procedures was not included in the critical care time. Code Status Full code Discussed Condition With Dr. Sevilla. Patient. Care plan discussed and all questions answered Problem Qualifiers (1) Leukocytosis: Qualified Codes: D72.829 - Elevated white blood cell count, unspecified (2) Diabetic neuropathy: (3) Gastroesophageal reflux disease: Qualified Codes: K21.9 - Gastro-esophageal reflux disease without esophagitis (4) Community acquired pneumonia: Qualified Codes: J18.9 - Pneumonia, unspecified organism (5) DKA (diabetic ketoacidoses): Qualified Codes: E10.10 - Type 1 diabetes mellitus with ketoacidosis without coma (6) Acute pancreatitis: Qualified Codes: K85.90 - Acute pancreatitis without necrosis or infection, unspecified (7) Sepsis: Qualified Codes: A41.9 - Sepsis, unspecified organism Mitul De Dios MD Jul 05, 2017 13:48
[2017-07-05] MEDS ORDERED: CALCIUM GLUCONATE 10% 1 GM/10 ML VIAL SLOW IVP ONE ×2 (14:00→17:45)
[2017-07-05] MEDS ORDERED: DEXTROSE 50% IN WATER 50 ML VIAL(D50) IV PUSH ONE ×2 (14:00→17:45)
[2017-07-05] MEDS ORDERED: SODIUM BICARBONATE 8.4% SOLN 50 MEQ/50 ML VIAL SLOW IVP ONE ×2 (14:00→17:45)
--- NOTE | 2017-07-05 14:27 | RADRPT ---
EXAM DATE/TIME: 07/05/2017 13:46 [place] COMPARISON: No previous studies available for comparison. INDICATIONS : Diffuse abdomen pain for two days. ORAL CONTRAST: No oral contrast ingested. RADIATION DOSE: 6.64 CTDIvol (mGy) MEDICAL HISTORY : Pancreatitis. Diabetes mellitus type 2. SURGICAL HISTORY : None. ENCOUNTER: Initial ACUITY: 2 days PAIN SCALE: Non-responsive LOCATION: Bilateral upper quadrant TECHNIQUE: Volumetric scanning of the abdomen and pelvis was performed. Using automated exposure control and ad justment of the mA and/or kV according to patient size, radiation dose was kept as low as reasonably achievable to obtain optimal diagnostic quality images. DICOM format image data is available electro nically for review and comparison. FINDINGS: LOWER LUNGS: The visualized lower lungs are clear. LIVER: Homogeneous density without lesion. There is no dilation of the biliary tree. No calcified gallston es. SPLEEN: Normal size without lesion. PANCREAS: Within normal limits. KIDNEYS: Normal in size and shape. There is no mass, stone, or hydronephrosis. ADRENAL GLANDS: Within normal limits. VASCULAR: There is no aortic aneurysm. BOWEL/MESENTERY: The stomach, small bowel, and colon demonstrate no acute abnormality. There is no free intraperitone al air or fluid. ABDOMINAL WALL: Within normal limits. RETROPERITONEUM: There is no lymphadenopathy. BLADDER: No wall thickening or mass. REPRODUCTIVE: Within normal limits. INGUINAL: There is no lymphadenopathy or hernia. MUSCULOSKELETAL: Within normal limits for patient age. CONCLUSION: 1. Bibasilar interstitial/alveolar opacities. 2. No acute inflammatory process. Dave Cui MD on July 05, 2017 at 14:10 Board Certified Radiologist. This report was verified electronically.
[2017-07-05] MEDS ORDERED: CALCIUM GLUCONATE INJ 1 GM in SODIUM CHLORIDE 0.9% INJ 100 ML IV ONE ×2 (14:45→18:00)
[2017-07-05] MEDS ORDERED: MULTIVITAMIN INJ 10 ML, THIAMINE INJ 100 MG, FOLIC ACID INJ 1 MG in SODIUM CHLORID 0.9%... IV ONE (15:00)
[2017-07-05 15:43] LABS: BICARBONATE 5.2 MEQ/L (21.0-32.0); POTASSIUM 6.3 MEQ/L (3.5-5.1)
[2017-07-05 16:05] LABS: CALCIUM-PROTEIN CORRECTED 7.1 MG/DL (8.5-10.1)
[2017-07-05] MEDS: HEPARIN SODIUM - SQ 10,000 UNITS/ML VIAL SQ SCH (16:52)
[2017-07-05] MEDS ORDERED: RESP: ALBUTEROL 2.5 MG/3 ML NEB (SCH) NEB ONE (17:45)
[2017-07-05] MEDS: ARTIFICIAL TEARS OPTH SOLN 15 ML BTL EACH EYE SCH (18:00)
[2017-07-05] MEDS ORDERED: SIMV20TA PO (18:07)
[2017-07-05 18:14] LABS: BICARBONATE 9.3 MEQ/L (21.0-32.0); POTASSIUM 4.8 MEQ/L (3.5-5.1)
[2017-07-05 18:54] LABS: CALCIUM-PROTEIN CORRECTED 7.2 MG/DL (8.5-10.1)
[2017-07-05] MEDS: DOCUSATE SODIUM 50 MG/SENNA 8.6 MG TAB PO SCH (21:00)
[2017-07-05 22:51] LABS: BICARBONATE 12.9 MEQ/L (21.0-32.0)
[2017-07-05 22:56] LABS: POTASSIUM 4.9 MEQ/L (3.5-5.1)
[2017-07-06] VITALS (22 sets, daily range): BP systolic 104–154; BP diastolic 56–90; PULSE 66–108; RESP 12–27; TEMP 98–99.1; O2SAT 91–99
[2017-07-06 04:00] LABS: APTT (PATIENT) 19.7 SEC (24.3-30.1)
[2017-07-06] MEDS: CHLORHEXIDINE GLUCONATE 2 % 1 PACK (2 CLOTHS) TOP SCH (04:00)
[2017-07-06 04:16] LABS: BETA-HYDROXYBUTYRATE 2.76 MMOL/L (0.00-0.39); BICARBONATE 23.2 MEQ/L (21.0-32.0); HDL CHOLESTEROL 49.1 MG/DL (40.0-60.0); MAGNESIUM 2.6 MG/DL (1.5-2.5); POTASSIUM 3.9 MEQ/L (3.5-5.1)
[2017-07-06] MEDS ORDERED: DC Insulin drip 2 hrs post basal insulin dose ONE (05:00)
[2017-07-06] MEDS ORDERED: DEXTROSE 50% IN WATER 50 ML VIAL(D50) IV PUSH PRN (05:00)
[2017-07-06] MEDS ORDERED: GLUCAGON 1 MG/ML VIAL OTHER PRN (05:00)
[2017-07-06] MEDS ORDERED: DC previous DKA orders (HMC 1917) ONE (05:00)
[2017-07-06] MEDS ORDERED: INSULIN REGULAR (IV INFUSION) 100 UNITS in SODIUM CHLORIDE 0.9% INJ 99 ML IV PRN (05:30)
--- NOTE | 2017-07-06 06:12 | RADRPT ---
EXAM DATE/TIME: 07/06/2017 04:37 [facility] COMPARISON: CHEST SINGLE AP, July 05, 2017, 11:43. INDICATIONS : Shortness of breath, possible pulmonary disease. MEDICAL HISTORY : Chronic obstructive pulmonary disease. SURGICAL HISTORY : None. ENCOUNTER: Subsequent ACUITY: 4 - 6 days PAIN SCORE: 0/10 LOCATION: Bilateral chest FINDINGS: Mild diffuse interstitial opacities in the right lung and left lower lung similar to prior exam when taking into account differences in technique. Both hemidiaphragms are well delineated. The heart is normal in size. CONCLUSION: Mild interstitial opacities without consolidation, stable. Clemente Rouse MD on July 06, 2017 at 6:10 Board Certified Radiologist. This report was verified electronically.
[2017-07-06] MEDS: PIPERACIL-TAZO 2.25 GM PREMIX 50 ML IV SCH ×2 (06:38)
[2017-07-06] MEDS: SODIUM CHLORIDE 0.9% FLUSH 10 ML FLUSH IV FLUSH SCH ×2 (06:39→08:52)
[2017-07-06] MEDS: LEVOTHYROXINE SODIUM 100 MCG VIAL IV PUSH SCH (06:40)
[2017-07-06 07:31] LABS: STAT YES
[2017-07-06] MEDS: INSULIN NovoLIN REGULAR SUPPLEMENTAL SCALE SQ SCH ×4 (08:00→21:00)
--- NOTE | 2017-07-06 08:18 | HHI.CCPN ---
Subjective Remarks/Hospital Course 51 year old male. The admission 07/05/2017. Past medical history includes IDDM with neuropathy and gastroparesis, chronic abdominal pain, dyslipidemia, cervical stenosis, osteoarthritis and hypothyroidism. Today he presents to the emergency department for evaluation of epigastric abdominal pain with recent hyperglycemia. His at bedside gives most of the information. The past 40 hours, patient is visiting nausea and vomiting She gave him baking soda and water which resolved the vomiting.ever, the abdominal pain persists. Sharp epigastric radiating to the back. Patient's gave him 30 units of insulin detemir at 9 AM this morning. EMS given 1 L normal saline IV bolus. Patient also has history of pancreatitis with similar symptoms. His chest x-ray revealed bilateral lower lobe pneumonia. Laboratories reveal leukocytosis of 24,000. Macrocytosis. Blood sugar 942. Patient low sodium with a potassium of 6.7.EKG with no T changes. Beta hydroxybutyrate was 16. Patient received a total of 3 L normal saline E Toni and was started on DKA protocol including 8 units insulin 1 and DKA insulin drip per protocol 0.1 units per kilogram per hour. Patient remains confused. CT abdomen/pelvis pending Subjective 07/06: Currently off insulin drip. Complains of abdominal pain [address] abdomen/post revealed no signs acute pancreatitis. More cognizant and aware today. Objective Vital Signs Date Time Temp Pulse Resp B/P (MAP) Pulse Ox O2 Delivery O2 Flow Rate FiO2 07/06/17 06:00 107 07/06/17 04:00 98.5 18 124/57 (79) 98 07/05/17 14:45 Room Air Intake and Output 07/06/17 07/06/17 07/07/17 08:00 16:00 00:00 Intake Total 1937 ml Output Total 3600 ml Balance -1663 ml Result Diagram: 07/05/17 1130 07/06/17 0319 Other Results Microbiology Date/Time Source Procedure Growth Status 07/05/17 13:00 Blood Peripheral Aerobic Blood Culture Pending Received 07/05/17 13:00 Blood Peripheral Anaerobic Blood Culture Pending Received 07/05/17 12:00 Urine Catheterized Urine Legionella Antigen Pending Received 07/05/17 12:00 Urine Catheterized Urine Streptococcus pneumoniae Antigen (M Pending Received Imaging Last Impressions Chest X-Ray 07/06/17 0000 Signed Impressions: Service Date/Time: June 04:37 - CONCLUSION: Mild interstitial opacities without consolidation, stable. Clemente Rouse MD Abdomen/Pelvis CT 07/05/17 0000 Signed Impressions: Service Date/Time: Wednesday, July 05, 2017 13:46 - CONCLUSION: 1. Bibasilar interstitial/alveolar opacities. 2. No acute inflammatory process. Dave Cui MD Objective Remarks GENERAL: 51-year-old male, resting in bed in no acute distress SKIN: Warm and dry. HEAD: Atraumatic. Normocephalic. EYES: Pupils equal and round about 2 mm bilaterally and reactive. No scleral icterus. No injection or drainage. ENT: No nasal bleeding or discharge. Mucous membranes pink and moist. NECK: Trachea midline. No JVD. CARDIOVASCULAR: Tachycardic, RR. S1, S2 no S4. Without murmur RESPIRATORY: Few fine crackles appreciated bilaterally. No wheezing GASTROINTESTINAL: Abdomen soft, tender to palpation epigastric region. Hypoactive bowel sounds. MUSCULOSKELETAL: Extremities without difficulty and peripheral edema. No obvious deformities. NEUROLOGICAL: Awake and alert person only. No obvious cranial nerve deficits. Motor grossly within normal limits. Five out of 5 muscle strength in the arms and legs. Clear speech. A/P Assessment and Plan Neuro/Psych: Diabetic neuropathy History of cervical stenosis Altered mental status/acute delirium secondary to DKA EtOH use Holding pregabalin 300 mg twice a day, amitriptyline 50 mg at night in light of altered mental status. Resume when clinically indicated Acetaminophen as needed for fever/pain 1-10 Thiamine, folate and multivitamin daily. Vitamin bag for today for 3 days total CV: History dyslipidemia Status post 3 L normal saline in ED. one quarter normal saline at 125 cc an hour secondary to hyper bacteremia Lipid panel ordered. Results pending. Adverse reaction to prior medications per documentation His troponin 0.03. EKG revealed sinus tachycardia. Nonspecific ST-T changes. Resp: Community-acquired pneumonia Nasal cannula to maintain saturations greater than equal to 92% Incentive spirometry while awake Chest x-ray 07/06 revealed stable bilateral lower lobe infiltrates right greater than left. GI: Acute pancreatitis lipase greater than 6000 currently History of pancreatitis Gastro esophageal reflux disease Patient is currently nothing by mouth. Will advance to ADA diet. Pantoprazole 40 mg IV daily medication CT abdomen/pelvis yesterday revealed no acute abdominal findings of pancreatitis : No indication for Salmeron catheter Endo: DKA IDDM Hypothyroidism Currently DKA protocol. This will be discontinued per our protocol switch to Levemir 15 units daily with medium sliding scale insulin with Accu-Cheks every before meals and at bedtime Home medications insulin detemir 30 units twice a day and aspart 10 mg 3 times a day with meals Switch levothyroxine to 75 mics grams IV daily Received 50 mEq sodium bicarbonate in ED. Renal: Acute kidney injury Anion gap metabolic acidosis/respiratory acidosis Baseline creatinine around 0.9. Currently 1.8 resolving Monitor urine output Accurate I's and O's Heme: Leukocytosis Macrocytosis Monitor CBC daily. Follow trends. No indications for transfusion of blood proximal at this time. ID: Community Acquired pneumonia Piperacillin/tazobactam and vancomycin 1 on 07/05. Continue piperacillin/ tazobactam. Blood cultures 2, sputum, urine Legionella and pneumococcal antigen and influenza all pending MSK: Osteoarthritis PT evaluate and treat FEN: Hypophosphatemia Hypernatremia Elevated magnesium Replace electrolytes as clinically indicated Access - Utilize peripheral IV. Central line if indicated Prophylaxis - GI - pantoprazole - DVT- SCD/heparin subcutaneous Critical Care: Level II follow-up. Patient is stable from critical care medicine standpoint. Assign care to hospitalist in a.m. 07/07. Mitul De Dios MD Jul 06, 2017 08:18
[2017-07-06] MEDS: DOCUSATE SODIUM 50 MG/SENNA 8.6 MG TAB PO SCH ×2 (08:51→21:00)
[2017-07-06] MEDS: ARTIFICIAL TEARS OPTH SOLN 15 ML BTL EACH EYE SCH ×3 (08:52→17:59)
[2017-07-06] MEDS: PANTOPRAZOLE SODIUM 40 MG VIAL IV PUSH SCH (08:52)
[2017-07-06] MEDS: MULTIVITAMIN INJ 10 ML, THIAMINE INJ 100 MG, FOLIC ACID INJ 1 MG in SODIUM CHLORID 0.9%... IV SCH (08:56)
[2017-07-06] MEDS ORDERED: DEXMEDETOMIDINE INJ 200 MCG in SODIUM CHLORIDE 0.9% INJ 50 ML IV PRN (09:00)
[2017-07-06] MEDS ORDERED: FLUMAZENIL 0.5 MG/5 ML VIAL IV PUSH PRN (09:00)
[2017-07-06] MEDS: INSULIN DETEMIR 100 UNITS/ML VIAL SQ SCH (09:00)
[2017-07-06] MEDS ORDERED: LORazepam 1 MG TAB PO PRN (09:00)
[2017-07-06] MEDS ORDERED: LORazepam 2 MG TAB PO PRN (09:00)
[2017-07-06] MEDS ORDERED: INSULIN DETEMIR 100 UNITS/ML VIAL SQ SCH (09:00)
[2017-07-06] MEDS ORDERED: DEXMEDETOMIDINE INJ 400 MCG in SODIUM CHLORIDE 0.9% INJ 96 ML IV PRN (10:00)
[2017-07-06] MEDS ORDERED: POTASSIUM PHOSPHATE INJ 30 MMOL in SODIUM CHLOR 0.9% 250 ML INJ 250 ML IV ONE (10:00)
[2017-07-06 11:09] LABS: BICARBONATE 21.6 MEQ/L (21.0-32.0); MAGNESIUM 2.7 MG/DL (1.5-2.5)
[2017-07-06] MEDS: SODIUM CHLORIDE 23.4% INJ 38.5 MEQ in WATER STERILE FOR INJ 1,000 ML IV SCH ×2 (11:48→22:41)
--- NOTE | 2017-07-06 15:13 | EKG ---
Date Performed: 07/05/2017 Time Performed: 12:04:19 PTAGE: 51 years EKG: Sinus rhythm MODERATE INTRAVENTRICULAR CONDUCTION DELAY BORDERLINE ECG PREVIOUS TRACING : 11/10/2013 20.55 Since the prior tracing, the sinus tachycardia has resolved , but there is no other significant serial change. DOCTOR: Penny Styles Interpretating Date/Time 07/06/2017 15:11:33
[2017-07-06] MEDS: PIPERACIL-TAZO 3.375 GM PREMIX 50 ML IV SCH ×2 (15:15→18:01)
[2017-07-06] MEDS: HEPARIN SODIUM - SQ 10,000 UNITS/ML VIAL SQ SCH (15:22)
[2017-07-06 16:16] LABS: BETA-HYDROXYBUTYRATE 2.63 MMOL/L (0.00-0.39); MAGNESIUM 2.5 MG/DL (1.5-2.5)
[2017-07-07] VITALS (29 sets, daily range): BP systolic 96–134; BP diastolic 58–82; PULSE 65–86; RESP 6–33; TEMP 97.9–98.9; O2SAT 90–98
[2017-07-07] MEDS: HEPARIN SODIUM - SQ 10,000 UNITS/ML VIAL SQ SCH ×2 (02:00→15:30)
[2017-07-07] MEDS ORDERED: DEXMEDETOMIDINE INJ 1,000 MCG in SODIUM CHLOR 0.9% 250 ML INJ 240 ML IV PRN ×4 (02:00)
[2017-07-07] MEDS: SODIUM CHLORIDE 23.4% INJ 38.5 MEQ in WATER STERILE FOR INJ 1,000 ML IV SCH ×2 (02:10→06:51)
[2017-07-07] MEDS: CHLORHEXIDINE GLUCONATE 2 % 1 PACK (2 CLOTHS) TOP SCH (04:00)
[2017-07-07] MEDS: LEVOTHYROXINE SODIUM 100 MCG VIAL IV PUSH SCH (05:48)
[2017-07-07 07:16] LABS: AUTOMATED NEUTROPHIL # 9.2 TH/MM3 (1.8-7.7); BASOPHIL % 0.4 % (0.0-2.0); EOSINOPHIL % 0.1 % (0.0-4.0); HEMATOCRIT 33.8 % (39.0-51.0); HEMO FLAGS DIFF FINAL; LYMPH % 19.1 % (9.0-44.0); LYMPHOCYTE # 2.4 TH/MM3 (1.0-4.8); MEAN CORPUSCULAR HEMOGLOBIN 29.1 PG (27.0-34.0); MEAN CORPUSCULAR HGB CONC 33.4 % (32.0-36.0); MONO % 5.8 % (0.0-8.0); NEUT % 74.6 % (16.0-70.0); PLATELET COUNT 204 TH/MM3 (150-450); RED BLOOD COUNT 3.89 MIL/MM3 (4.50-5.90); RED CELL DISTRIBUTION WIDTH 14.8 % (11.6-17.2); WHITE BLOOD COUNT 12.3 TH/MM3 (4.0-11.0)
[2017-07-07 07:43] LABS: ALT (GPT) 15 U/L (12-78); ANION GAP 11 MEQ/L (5-15); BICARBONATE 20.7 MEQ/L (21.0-32.0); BLOOD UREA NITROGEN 24 MG/DL (7-18); CHLORIDE 110 MEQ/L (98-107); GLOMERULAR FILTRATION RATE 74 ML/MIN (>89); MAGNESIUM 2.4 MG/DL (1.5-2.5); POTASSIUM 3.6 MEQ/L (3.5-5.1); SODIUM (NA) 142 MEQ/L (136-145)
[2017-07-07 07:56] LABS: ALKALINE PHOSPHATASE 99 U/L (45-117); AST (GOT) 25 U/L (15-37); TOTAL BILIRUBIN ADULT 0.4 MG/DL (0.2-1.0)
[2017-07-07] MEDS: INSULIN NovoLIN REGULAR SUPPLEMENTAL SCALE SQ SCH ×4 (08:00→21:00)
[2017-07-07] MEDS: SODIUM CHLORIDE 0.9% FLUSH 10 ML FLUSH IV FLUSH SCH ×2 (08:07→20:15)
[2017-07-07] MEDS: ARTIFICIAL TEARS OPTH SOLN 15 ML BTL EACH EYE SCH ×3 (08:08→19:00)
[2017-07-07] MEDS: PANTOPRAZOLE SODIUM 40 MG VIAL IV PUSH SCH (08:10)
[2017-07-07] MEDS: MULTIVITAMIN INJ 10 ML, THIAMINE INJ 100 MG, FOLIC ACID INJ 1 MG in SODIUM CHLORID 0.9%... IV SCH (08:10)
[2017-07-07] MEDS: INSULIN DETEMIR 100 UNITS/ML VIAL SQ SCH (08:10)
[2017-07-07] MEDS: DOCUSATE SODIUM 50 MG/SENNA 8.6 MG TAB PO SCH ×2 (08:10→20:15)
[2017-07-07] MEDS: PIPERACIL-TAZO 3.375 GM PREMIX 50 ML IV SCH ×3 (15:30→19:00)
[2017-07-07] MEDS ORDERED: MAGNESIUM SULFATE INJ 4 GM in SODIUM CHLORIDE 0.9% INJ 92 ML IV PRN (16:45)
[2017-07-07] MEDS ORDERED: MAGNESIUM OXIDE 400 MG TAB PO PRN (16:45)
[2017-07-07] MEDS ORDERED: POTASSIUM PHOSPHATE MONOBASIC 500 MG TAB PO PRN (16:45)
[2017-07-07] MEDS ORDERED: POTASSIUM CHLORIDE 25 MEQ EFFERVESCENT TAB PO PRN (16:45)
[2017-07-07] MEDS ORDERED: POTASSIUM CHLOR 20 MEQ PREMIX 100 ML IV PRN ×2 (16:45)
[2017-07-07] MEDS ORDERED: POTASSIUM PHOSPHATE MONOBASIC 500 MG TAB PO/TUBE PRN (16:45)
[2017-07-07] MEDS ORDERED: MAGNESIUM SULFATE INJ 2 GM in SODIUM CHLORIDE 0.9% INJ 96 ML IV PRN (16:45)
[2017-07-07] MEDS ORDERED: POTASSIUM PHOSPHATE INJ 30 MMOL in SODIUM CHLOR 0.9% 250 ML INJ 250 ML IV PRN (16:45)
[2017-07-07] MEDS ORDERED: POTASSIUM CHLOR 40 MEQ PREMIX 100 ML IV PRN ×2 (16:45)
[2017-07-07] MEDS ORDERED: SODIUM PHOSPHATE INJ 30 MMOL in SODIUM CHLOR 0.9% 250 ML INJ 240 ML IV PRN (16:45)
--- NOTE | 2017-07-07 16:50 | HHI.CCPN ---
Subjective Remarks/Hospital Course 51 year old male. The admission 07/05/2017. Past medical history includes IDDM with neuropathy and gastroparesis, chronic abdominal pain, dyslipidemia, cervical stenosis, osteoarthritis and hypothyroidism. Today he presents to the emergency department for evaluation of epigastric abdominal pain with recent hyperglycemia. His at bedside gives most of the information. The past 40 hours, patient is visiting nausea and vomiting She gave him baking soda and water which resolved the vomiting.ever, the abdominal pain persists. Sharp epigastric radiating to the back. Patient's gave him 30 units of insulin detemir at 9 AM this morning. EMS given 1 L normal saline IV bolus. Patient also has history of pancreatitis with similar symptoms. His chest x-ray revealed bilateral lower lobe pneumonia. Laboratories reveal leukocytosis of 24,000. Macrocytosis. Blood sugar 942. Patient low sodium with a potassium of 6.7.EKG with no T changes. Beta hydroxybutyrate was 16. Patient received a total of 3 L normal saline ED and was started on DKA protocol including 8 units insulin 1 and DKA insulin drip per protocol 0.1 units per kilogram per hour. Patient remains confused. CT abdomen/pelvis pending 07/06: Currently off insulin drip. Complains of abdominal pain [address] abdomen/post revealed no signs acute pancreatitis. More cognizant and aware today. Subjective 07/07: Currently resting in bed and on a dexmedetomidine drip. Still coughing abdominal pain. Creatinine is stabilized. Likely still elevated. Might need Dobbhoff tube Objective Vital Signs Date Time Temp Pulse Resp B/P (MAP) Pulse Ox O2 Delivery O2 Flow Rate FiO2 07/07/17 12:00 76 27 112/74 (87) 94 07/07/17 08:00 98.9 07/06/17 21:08 21 07/05/17 14:45 Room Air Intake and Output 07/07/17 07/07/17 07/08/17 08:00 16:00 00:00 Intake Total 4044 ml Output Total 1200 ml Balance 2844 ml Result Diagram: 07/07/17 0533 07/07/17 0533 Other Results Microbiology Date/Time Source Procedure Growth Status 07/05/17 13:00 Blood Peripheral Aerobic Blood Culture - Preliminary NO GROWTH IN 2 DAYS Resulted 07/05/17 13:00 Blood Peripheral Anaerobic Blood Culture - Preliminary NO GROWTH IN 2 DAYS Resulted 07/05/17 12:00 Urine Catheterized Urine Legionella Antigen - Final PRESUMPTIVE NEGATIVE FOR LEGIONELLA P... Complete 07/05/17 12:00 Urine Catheterized Urine Streptococcus pneumoniae Antigen (M - Final PRESUMPTIVE NEGATIVE FOR STREPTOCOCCU... Complete Imaging Last Impressions Chest X-Ray 07/06/17 0000 Signed Impressions: Service Date/Time: June 04:37 - CONCLUSION: Mild interstitial opacities without consolidation, stable. Clemente Rouse MD Abdomen/Pelvis CT 07/05/17 0000 Signed Impressions: Service Date/Time: Wednesday, July 05, 2017 13:46 - CONCLUSION: 1. Bibasilar interstitial/alveolar opacities. 2. No acute inflammatory process. Dave Cui MD Objective Remarks GENERAL: 51-year-old male, resting in bed in no acute distress SKIN: Warm and dry. HEAD: Atraumatic. Normocephalic. EYES: Pupils equal and round about 2 mm bilaterally and reactive. No scleral icterus. No injection or drainage. ENT: No nasal bleeding or discharge. Mucous membranes pink and moist. NECK: Trachea midline. No JVD. CARDIOVASCULAR: Tachycardic, RR. S1, S2 no S4. Without murmur RESPIRATORY: Few fine crackles appreciated bilaterally. No wheezing GASTROINTESTINAL: Abdomen soft, tender to palpation epigastric region. Hypoactive bowel sounds. MUSCULOSKELETAL: Extremities without difficulty and peripheral edema. No obvious deformities. NEUROLOGICAL: Awake and alert person only. No obvious cranial nerve deficits. Motor grossly within normal limits. Five out of 5 muscle strength in the arms and legs. Clear speech. A/P Assessment and Plan Neuro/Psych: Diabetic neuropathy History of cervical stenosis Altered mental status/acute delirium secondary to DKA EtOH use Holding pregabalin 300 mg twice a day, amitriptyline 50 mg at night in light of altered mental status. Resume when clinically indicated Acetaminophen as needed for fever/pain 1-10 Thiamine, folate and multivitamin daily. Vitamin bag for today for 3 days total has been completed. Likely will start thiamine tomorrow CV: History dyslipidemia Status post 3 L normal saline in ED. one half normal saline at 90 cc an hour Right glycerin normal Adverse reaction to prior medications per documentation His troponin 0.03. EKG revealed sinus tachycardia. Nonspecific ST-T changes. Resp: Community-acquired pneumonia Nasal cannula to maintain saturations greater than equal to 92% Incentive spirometry while awake Chest x-ray 07/06 revealed stable bilateral lower lobe infiltrates right greater than left. GI: Acute pancreatitis lipase greater than 6000 currently History of pancreatitis Gastro esophageal reflux disease Liquid ADA diet. Pantoprazole 40 mg IV daily medication CT abdomen/pelvis yesterday revealed no acute abdominal findings of pancreatitis : No indication for Salmeron catheter Endo: DKA IDDM Hypothyroidism Status post DT protocol. Switched and son detemir 15 units daily with medium sliding scale insulin with Accu-Cheks every before meals and at bedtime Home medications insulin detemir 30 units twice a day and aspart 10 mg 3 times a day with meals Switch levothyroxine 150 g by mouth daily Received 50 mEq sodium bicarbonate in ED. Renal: Acute kidney injury Anion gap metabolic acidosis/respiratory acidosis Baseline creatinine around 0.9. Currently on 0.0 Monitor urine output Accurate I's and O's Heme: Leukocytosis Macrocytosis Monitor CBC daily. Follow trends. No indications for transfusion of blood proximal at this time. ID: Community Acquired pneumonia Piperacillin/tazobactam and vancomycin 1 on 07/05. Continue piperacillin/ tazobactam. Blood cultures 2, sputum, urine Legionella and pneumococcal antigen and influenza all pending MSK: Osteoarthritis PT evaluate and treat FEN: Hypophosphatemia Replace electrolytes as clinically indicated [place] K-Phos IV 1 now. Access - Utilize peripheral IV. Central line if indicated Prophylaxis - GI - pantoprazole - DVT- SCD/heparin subcutaneous Critical Care: Level II follow-up. Patient is stable from critical care medicine standpoint. Assign care to hospitalist in a.m. 07/07. Mitul De Dios MD Jul 07, 2017 16:50
[2017-07-07] MEDS ORDERED: POTASSIUM PHOSPHATE INJ 30 MMOL in SODIUM CHLOR 0.9% 250 ML INJ 250 ML IV ONE (18:00)
[2017-07-07] MEDS: POTASSIUM CHLORIDE INJ 10 MEQ in SODIUM CHLOR 0.45% 1000 ML INJ 1,000 ML IV SCH (19:00)
[2017-07-08] VITALS (10 sets, daily range): BP systolic 114–142; BP diastolic 74–84; PULSE 68–86; RESP 20–22; TEMP 95.9–98.9; O2SAT 92–96
[2017-07-08] MEDS: PIPERACIL-TAZO 3.375 GM PREMIX 50 ML IV SCH ×4 (00:25→17:27)
[2017-07-08] MEDS: HEPARIN SODIUM - SQ 10,000 UNITS/ML VIAL SQ SCH ×2 (02:00→13:44)
[2017-07-08] MEDS: CHLORHEXIDINE GLUCONATE 2 % 1 PACK (2 CLOTHS) TOP SCH (02:05)
[2017-07-08 04:37] LABS: AUTOMATED NEUTROPHIL # 5.2 TH/MM3 (1.8-7.7); BASOPHIL % 0.3 % (0.0-2.0); EOSINOPHIL # 0.1 TH/MM3 (0-0.4); EOSINOPHIL % 0.6 % (0.0-4.0); HEMATOCRIT 34.9 % (39.0-51.0); HEMO FLAGS DIFF FINAL; LYMPHOCYTE # 2.3 TH/MM3 (1.0-4.8); MEAN CELL VOLUME 86.5 FL (80.0-100.0); MEAN CORPUSCULAR HEMOGLOBIN 29.9 PG (27.0-34.0); MEAN CORPUSCULAR HGB CONC 34.5 % (32.0-36.0); MONO % 8.3 % (0.0-8.0); NEUT % 62.8 % (16.0-70.0); PLATELET COUNT 184 TH/MM3 (150-450); RED BLOOD COUNT 4.03 MIL/MM3 (4.50-5.90); RED CELL DISTRIBUTION WIDTH 15.1 % (11.6-17.2); WHITE BLOOD COUNT 8.2 TH/MM3 (4.0-11.0)
[2017-07-08 04:57] LABS: ALKALINE PHOSPHATASE 104 U/L (45-117); ALT (GPT) 16 U/L (12-78); ANION GAP 7 MEQ/L (5-15); AST (GOT) 28 U/L (15-37); BICARBONATE 23.7 MEQ/L (21.0-32.0); BLOOD UREA NITROGEN 15 MG/DL (7-18); CHLORIDE 109 MEQ/L (98-107); GLOMERULAR FILTRATION RATE 112 ML/MIN (>89); MAGNESIUM 1.9 MG/DL (1.5-2.5); POTASSIUM 3.9 MEQ/L (3.5-5.1); SODIUM (NA) 140 MEQ/L (136-145); TOTAL BILIRUBIN ADULT 0.7 MG/DL (0.2-1.0)
[2017-07-08] MEDS: POTASSIUM CHLORIDE INJ 10 MEQ in SODIUM CHLOR 0.45% 1000 ML INJ 1,000 ML IV SCH ×2 (05:10→08:19)
[2017-07-08] MEDS: LEVOTHYROXINE SODIUM 150 MCG TAB PO SCH (05:42)
[2017-07-08] MEDS: INSULIN NovoLIN REGULAR SUPPLEMENTAL SCALE SQ SCH ×4 (08:00→21:46)
[2017-07-08] MEDS: PANTOPRAZOLE SODIUM 40 MG VIAL IV PUSH SCH (08:54)
[2017-07-08] MEDS: DOCUSATE SODIUM 50 MG/SENNA 8.6 MG TAB PO SCH ×2 (08:54→08:58)
[2017-07-08] MEDS: SODIUM CHLORIDE 0.9% FLUSH 10 ML FLUSH IV FLUSH SCH ×2 (08:55→21:46)
[2017-07-08] MEDS: ARTIFICIAL TEARS OPTH SOLN 15 ML BTL EACH EYE SCH ×3 (08:56→17:27)
[2017-07-08] MEDS: INSULIN DETEMIR 100 UNITS/ML VIAL SQ SCH (08:56)
--- NOTE | 2017-07-08 12:13 | HHI.CCPN ---
Subjective Remarks/Hospital Course 51 year old male. The admission 07/05/2017. Past medical history includes IDDM with neuropathy and gastroparesis, chronic abdominal pain, dyslipidemia, cervical stenosis, osteoarthritis and hypothyroidism. Today he presents to the emergency department for evaluation of epigastric abdominal pain with recent hyperglycemia. His at bedside gives most of the information. The past 40 hours, patient is visiting nausea and vomiting She gave him baking soda and water which resolved the vomiting.ever, the abdominal pain persists. Sharp epigastric radiating to the back. Patient's gave him 30 units of insulin detemir at 9 AM this morning. EMS given 1 L normal saline IV bolus. Patient also has history of pancreatitis with similar symptoms. His chest x-ray revealed bilateral lower lobe pneumonia. Laboratories reveal leukocytosis of 24,000. Macrocytosis. Blood sugar 942. Patient low sodium with a potassium of 6.7.EKG with no T changes. Beta hydroxybutyrate was 16. Patient received a total of 3 L normal saline ED and was started on DKA protocol including 8 units insulin 1 and DKA insulin drip per protocol 0.1 units per kilogram per hour. Patient remains confused. CT abdomen/pelvis pending 07/06: Currently off insulin drip. Complains of abdominal pain [address] abdomen/post revealed no signs acute pancreatitis. More cognizant and aware today. 07/07: Currently resting in bed and on a dexmedetomidine drip. Still coughing abdominal pain. Creatinine is stabilized. Likely still elevated. Might need Dobbhoff tube Subjective 07/08: Denies abdominal pain. Wishes to go to the bathroom and private. states he has not consumed alcohol in over one year. Positive BM. Refusing laxatives oxygen is discontinued. Discontinue dexmedetomidine drip Objective Vital Signs Date Time Temp Pulse Resp B/P (MAP) Pulse Ox O2 Delivery O2 Flow Rate FiO2 07/08/17 10:04 95 07/08/17 06:00 71 07/08/17 04:00 98.0 20 129/78 (95) 07/07/17 20:11 21 07/05/17 14:45 Room Air Intake and Output 07/08/17 07/08/17 07/09/17 08:00 16:00 00:00 Intake Total 360 ml Balance 360 ml Result Diagram: 07/08/17 0345 07/08/17 0345 Other Results Microbiology Date/Time Source Procedure Growth Status 07/05/17 13:00 Blood Peripheral Aerobic Blood Culture - Preliminary NO GROWTH IN 3 DAYS Resulted 07/05/17 13:00 Blood Peripheral Anaerobic Blood Culture - Preliminary NO GROWTH IN 3 DAYS Resulted 07/05/17 12:00 Urine Catheterized Urine Legionella Antigen - Final PRESUMPTIVE NEGATIVE FOR LEGIONELLA P... Complete 07/05/17 12:00 Urine Catheterized Urine Streptococcus pneumoniae Antigen (M - Final PRESUMPTIVE NEGATIVE FOR STREPTOCOCCU... Complete Imaging Last Impressions Chest X-Ray 07/06/17 0000 Signed Impressions: Service Date/Time: , July 06, 2017 04:37 - CONCLUSION: Mild interstitial opacities without consolidation, stable. Clemente Rouse MD Abdomen/Pelvis CT 07/05/17 0000 Signed Impressions: Service Date/Time: Wednesday, July 05, 2017 13:46 - CONCLUSION: 1. Bibasilar interstitial/alveolar opacities. 2. No acute inflammatory process. Dave Cui MD Objective Remarks GENERAL: 51-year-old male, resting in bed in no acute distress SKIN: Warm and dry. HEAD: Atraumatic. Normocephalic. EYES: Pupils equal and round about 2 mm bilaterally and reactive. No scleral icterus. No injection or drainage. ENT: No nasal bleeding or discharge. Mucous membranes pink and moist. NECK: Trachea midline. No JVD. CARDIOVASCULAR: RRR. S1, S2 no S4. Without murmur RESPIRATORY: Few fine crackles appreciated bilaterally. No wheezing GASTROINTESTINAL: Abdomen soft, not tender to palpation. Hypoactive bowel sounds. MUSCULOSKELETAL: Extremities without difficulty and peripheral edema. No obvious deformities. NEUROLOGICAL: Awake and alert person only. No obvious cranial nerve deficits. Motor grossly within normal limits. Five out of 5 muscle strength in the arms and legs. Clear speech. A/P Assessment and Plan Neuro/Psych: Diabetic neuropathy History of cervical stenosis Altered mental status/acute delirium secondary to DKA EtOH use Holding pregabalin 300 mg twice a day, amitriptyline 50 mg at night in light of altered mental status. Resume when clinically indicated Acetaminophen as needed for fever/pain 1-10 Thiamine, folate and multivitamin daily. Vitamin bag for today for 3 days total has been completed. Likely will start thiamine tomorrow Dexmedetomidine drip discontinued CV: History dyslipidemia Status post 3 L normal saline in ED. one half normal saline at 90 cc an hour discontinued today 07/08 Right glycerin normal Adverse reaction to prior medications per documentation His troponin 0.03. EKG revealed sinus tachycardia. Nonspecific ST-T changes. Resp: Community-acquired pneumonia Nasal cannula to maintain saturations greater than equal to 92% Incentive spirometry while awake Chest x-ray 07/06 revealed stable bilateral lower lobe infiltrates right greater than left. GI: Acute pancreatitis lipase greater than 6000 currently History of pancreatitis Gastro esophageal reflux disease Resume 2200 ADA diet. Pantoprazole 40 mg IV daily medication dis continued today. CT abdomen/pelvis on admission revealed no acute abdominal findings of pancreatitis : No indication for Salmeron catheter Endo: DKA IDDM Hypothyroidism Status post DT protocol. Switched and son detemir 15 units daily with medium sliding scale insulin with Accu-Cheks every before meals and at bedtime Home medications insulin detemir 30 units twice a day and aspart 10 mg 3 times a day with meals Home medication levothyroxine 150 g by mouth daily Received 50 mEq sodium bicarbonate in ED. Renal: Acute kidney injury Anion gap metabolic acidosis/respiratory acidosis Baseline creatinine around 0.9. Monitor urine output Accurate I's and O's Heme: Leukocytosis Macrocytosis Monitor CBC daily. Follow trends. No indications for transfusion of blood proximal at this time. ID: Community Acquired pneumonia Piperacillin/tazobactam and vancomycin 1 on 07/05. Continue piperacillin/ tazobactam. Blood cultures 2, sputum, urine Legionella and pneumococcal antigen and influenza all pendingno growth MSK: Osteoarthritis PT evaluate and treat FEN: Replace electrolytes as clinically indicated Access - Utilize peripheral IV. Central line if indicated Prophylaxis - GI - pantoprazole - DVT- SCD/heparin subcutaneous Critical Care: Level II follow-up. Patient is stable from critical care medicine standpoint. Assign care to hospitalist in a.m. 07/08.. Transfer to general medical floor Mitul De Dios MD Jul 08, 2017 12:13
[2017-07-08] MEDS ORDERED: MAGNESIUM SULFATE 1 GM PREMIX 100 ML IV ONE (12:15)
--- NOTE | 2017-07-08 20:22 | RADRPT ---
EXAM DATE/TIME: 07/08/2017 19:01 [facility] COMPARISON: No previous studies available for comparison. INDICATIONS : Increased amylase/lipase. MEDICAL HISTORY : Hypercholesterolemia. Thyroid disease. Chest pain. Pancreatitis. Arthritis. Diabetes. SURGICAL HISTORY : Tonsillectomy. Right rotator cuff surgery. ENCOUNTER: Subsequent ACUITY: 1 day PAIN SCORE: 3/10 LOCATION: Right upper quadrant MEASUREMENTS: LIVER: 20.4 cm length COMMON DUCT: 3 mm RIGHT KIDNEY: 12.1 x 7.1 x 5.6 cm FINDINGS: Liver mildly enlarged to 20.4 cm. Pancreas unremarkable. No gallstones. Small amount of pericholecyst ic fluid. Small right renal cyst. No free fluid. CONCLUSION: 1. Mildly enlarged liver. Pancreas unremarkable sonographically. Small amount of pericholecystic flui d. Fernandez Miller MD on July 08, 2017 at 20:18 Board Certified Radiologist. This report was verified electronically.
[2017-07-09] VITALS: BP 130/72; PULSE 78; RESP 22; TEMP 97.8; O2SAT 94
[2017-07-09] MEDS: HEPARIN SODIUM - SQ 10,000 UNITS/ML VIAL SQ SCH (01:39)
[2017-07-09] MEDS: PIPERACIL-TAZO 3.375 GM PREMIX 50 ML IV SCH ×2 (01:40→06:21)
[2017-07-09] MEDS: CHLORHEXIDINE GLUCONATE 2 % 1 PACK (2 CLOTHS) TOP SCH (01:40)
[2017-07-09] MEDS: LEVOTHYROXINE SODIUM 150 MCG TAB PO SCH (06:21)
[2017-07-09 08:00] VITALS: BP 127/74; PULSE 89; RESP 17; TEMP 97.4; O2SAT 94
[2017-07-09] MEDS: INSULIN DETEMIR 100 UNITS/ML VIAL SQ SCH (08:00)
[2017-07-09] MEDS: INSULIN NovoLIN REGULAR SUPPLEMENTAL SCALE SQ SCH ×2 (08:00→12:32)
[2017-07-09] MEDS: ARTIFICIAL TEARS OPTH SOLN 15 ML BTL EACH EYE SCH (08:00)
[2017-07-09] MEDS: SODIUM CHLORIDE 0.9% FLUSH 10 ML FLUSH IV FLUSH SCH (08:01)
[2017-07-09 08:18] VITALS: O2SAT 94
[2017-07-09] MEDS ORDERED: THIAMINE HCL 100 MG TAB PO SCH (09:00)
--- NOTE | 2017-07-09 10:35 | HHI.PR ---
Subjective Remarks Follow with AMS/DKA/CAP 07/09/17-7, denies any abdominal pain. Afebrile. Alert and oriented. States he is hungry. Objective Vitals Vital Signs Date Time Temp Pulse Resp B/P (MAP) Pulse Ox O2 Delivery O2 Flow Rate FiO2 07/09/17 08:18 94 21 07/09/17 08:00 97.4 89 17 127/74 (91) 94 07/09/17 06:13 21 07/09/17 00:00 97.8 78 22 130/72 (91) 94 07/08/17 20:00 95.9 81 22 135/77 (96) 96 07/08/17 14:00 86 07/08/17 12:00 98.9 70 20 128/84 (99) 96 07/08/17 12:00 70 I/O 07/08/17 07/08/17 07/08/17 07/09/17 07/09/17 07/09/17 07:00 15:00 23:00 07:00 15:00 23:00 Intake Total 360 ml 0 ml 800 ml Balance 360 ml 0 ml 800 ml Intake Oral 360 ml 0 ml 800 ml # Voids 4 1 2 # Bowel Movements 4 0 Result Diagram: 07/08/17 0345 07/08/17 0345 Imaging Last Impressions Pancreas Ultrasound 07/08/17 0000 Signed Impressions: Service Date/Time: Saturday, July 08, 2017 19:01 - CONCLUSION: 1. Mildly enlarged liver. Pancreas unremarkable sonographically. Small amount of pericholecystic fluid. Fernandez Miller MD Chest X-Ray 07/06/17 0000 Signed Impressions: Service Date/Time: June 04:37 - CONCLUSION: Mild interstitial opacities without consolidation, stable. Clemente Rouse MD Abdomen/Pelvis CT 07/05/17 0000 Signed Impressions: Service Date/Time: Wednesday, July 05, 2017 13:46 - CONCLUSION: 1. Bibasilar interstitial/alveolar opacities. 2. No acute inflammatory process. Dave Cui MD Objective Remarks GENERAL: NAD SKIN: Warm and dry. HEAD: Normocephalic. EYES: No scleral icterus. No injection or drainage. NECK: Supple, trachea midline. No JVD or lymphadenopathy. CARDIOVASCULAR: Regular rate and rhythm without murmurs, gallops, or rubs. RESPIRATORY: Breath sounds equal bilaterally. No accessory muscle use. GASTROINTESTINAL: Abdomen soft, non-tender, nondistended. MUSCULOSKELETAL: No cyanosis, or edema. BACK: Nontender without obvious deformity. No CVA tenderness. A/P Problem List: (1) Hypermagnesemia ICD Code: E83.41 - Hypermagnesemia (2) Leukocytosis ICD Code: D72.829 - Elevated white blood cell count, unspecified (3) Elevated AST (SGOT) ICD Code: R74.0 - Nonspecific elevation of levels of transaminase and lactic acid dehydrogenase [LDH] (4) Diabetic gastroparesis ICD Code: E11.43 - Type 2 diabetes mellitus with diabetic autonomic (poly) neuropathy; K31.84 - Gastroparesis (5) Diabetic neuropathy ICD Code: E11.40 - Type 2 diabetes mellitus with diabetic neuropathy, unspecified (6) Acute kidney injury ICD Code: N17.9 - Acute kidney failure, unspecified (7) Hyperkalemia ICD Code: E87.5 - Hyperkalemia (8) Elevated beta-hydroxybutyrate ICD Code: R78.89 - Finding of other specified substances, not normally found in blood (9) Gastroesophageal reflux disease ICD Code: K21.9 - Gastro-esophageal reflux disease without esophagitis (10) Dyslipidemia ICD Code: E78.5 - Hyperlipidemia, unspecified (11) Community acquired pneumonia ICD Code: J18.9 - Pneumonia, unspecified organism (12) DKA (diabetic ketoacidoses) ICD Code: E13.10 - DKA (diabetic ketoacidoses) Status: Acute (13) Acute pancreatitis ICD Code: K85.9 - Acute pancreatitis Status: Acute (14) High anion gap metabolic acidosis ICD Code: E87.2 - High anion gap metabolic acidosis Status: Acute (15) Sepsis ICD Code: A41.9 - Sepsis, unspecified organism Status: Acute Assessment and Plan 51 yrs old man with Diabetic neuropathy History of cervical stenosis Altered mental status/acute delirium secondary to DKA EtOH use Holding pregabalin 300 mg twice a day, amitriptyline 50 mg at night in light of altered mental status. Resume when clinically indicated Acetaminophen as needed for fever/pain 1-10 Thiamine, folate and multivitamin daily. Acute pancreatitis lipase greater than 6000 currently History of pancreatitis Gastro esophageal reflux disease CT abdomen/pelvis on admission revealed no acute abdominal findings of pancreatitis Monitor Lipase PPI DKA IDDM Hypothyroidism Increase detemir to 20 units daily with medium sliding scale insulin with Accu- Cheks every before meals and at bedtime Home medications insulin detemir 30 units twice a day and aspart 10 mg 3 times a day with meals Home medication levothyroxine 150 g by mouth daily Acute kidney injury Anion gap metabolic acidosis/respiratory acidosis-Resolved Baseline creatinine around 0.9. Monitor urine output Accurate I's and O's Leukocytosis Macrocytosis Monitor CBC daily. Follow trends. No indications for transfusion of blood proximal at this time. Community Acquired pneumonia Piperacillin/tazobactam and vancomycin 1 on 07/05. Continue piperacillin/ tazobactam. Blood cultures 2, sputum, urine Legionella and pneumococcal antigen and influenza all NTD Osteoarthritis PT evaluate and treat Prophylaxis - GI - pantoprazole - DVT- SCD/heparin subcutaneous Problem Qualifiers (1) Leukocytosis: Qualified Codes: D72.829 - Elevated white blood cell count, unspecified (2) Diabetic neuropathy: (3) Gastroesophageal reflux disease: Qualified Codes: K21.9 - Gastro-esophageal reflux disease without esophagitis (4) Community acquired pneumonia: Qualified Codes: J18.9 - Pneumonia, unspecified organism (5) DKA (diabetic ketoacidoses): Qualified Codes: E10.10 - Type 1 diabetes mellitus with ketoacidosis without coma (6) Acute pancreatitis: Qualified Codes: K85.90 - Acute pancreatitis without necrosis or infection, unspecified (7) Sepsis: Qualified Codes: A41.9 - Sepsis, unspecified organism Dave Marquez MD Jul 09, 2017 10:35
[2017-07-09 12:00] VITALS: BP 125/72; PULSE 97; RESP 17; TEMP 97.6; O2SAT 95
[2017-07-09] MEDS ORDERED: LEVEMIR SQ (12:14)
[2017-07-09] MEDS ORDERED: THIA100 PO (12:14)
[2017-07-09] MEDS ORDERED: NOVOINJ3 SQ (12:14)
[2017-07-09] MEDS ORDERED: AZIT250T3 PO (12:15)
--- NOTE | 2017-07-09 12:18 | HHI.DS ---
Discharge Summary Admission Date Jul 05, 2017 at 13:17 Discharge Date: Jul 09, 2017 Admitting Diagnosis DKA, pneumonia, sepsis, acute pancreatitis (1) Hypermagnesemia ICD Code: E83.41 - Hypermagnesemia Diagnosis: Principal (2) Leukocytosis ICD Code: D72.829 - Elevated white blood cell count, unspecified Diagnosis: Principal (3) Elevated AST (SGOT) ICD Code: R74.0 - Nonspecific elevation of levels of transaminase and lactic acid dehydrogenase [LDH] Diagnosis: Principal (4) Diabetic gastroparesis ICD Code: E11.43 - Type 2 diabetes mellitus with diabetic autonomic (poly) neuropathy; K31.84 - Gastroparesis Diagnosis: Secondary (5) Diabetic neuropathy ICD Code: E11.40 - Type 2 diabetes mellitus with diabetic neuropathy, unspecified Diagnosis: Secondary (6) Acute kidney injury ICD Code: N17.9 - Acute kidney failure, unspecified Diagnosis: Principal (7) Hyperkalemia ICD Code: E87.5 - Hyperkalemia Diagnosis: Principal (8) Elevated beta-hydroxybutyrate ICD Code: R78.89 - Finding of other specified substances, not normally found in blood Diagnosis: Principal (9) Gastroesophageal reflux disease ICD Code: K21.9 - Gastro-esophageal reflux disease without esophagitis Diagnosis: Secondary (10) Dyslipidemia ICD Code: E78.5 - Hyperlipidemia, unspecified Diagnosis: Secondary (11) Community acquired pneumonia ICD Code: J18.9 - Pneumonia, unspecified organism Diagnosis: Principal (12) DKA (diabetic ketoacidoses) ICD Code: E13.10 - DKA (diabetic ketoacidoses) Diagnosis: Principal Status: Acute (13) Acute pancreatitis ICD Code: K85.9 - Acute pancreatitis Diagnosis: Principal Status: Acute (14) High anion gap metabolic acidosis ICD Code: E87.2 - High anion gap metabolic acidosis Diagnosis: Principal Status: Acute (15) Sepsis ICD Code: A41.9 - Sepsis, unspecified organism Diagnosis: Principal Status: Acute Procedures None Brief History - From Admission 51 year old male. The admission 07/05/2017. Past medical history includes IDDM with neuropathy and gastroparesis, chronic abdominal pain, dyslipidemia, cervical stenosis, osteoarthritis and hypothyroidism. Today he presents to the emergency department for evaluation of epigastric abdominal pain with recent hyperglycemia. His at bedside gives most of the information. The past 40 hours, patient is visiting nausea and vomiting She gave him baking soda and water which resolved the vomiting.ever, the abdominal pain persists. Sharp epigastric radiating to the back. Patient's gave him 30 units of insulin detemir at 9 AM this morning. EMS given 1 L normal saline IV bolus. Patient also has history of pancreatitis with similar symptoms. His chest x-ray revealed bilateral lower lobe pneumonia. Laboratories reveal leukocytosis of 24,000. Macrocytosis. Blood sugar 942. Patient low sodium with a potassium of 6.7.EKG with no T changes. Beta hydroxybutyrate was 16. Patient received a total of 3 L normal saline E Toni and was started on DKA protocol including 8 units insulin 1 and DKA insulin drip per protocol 0.1 units per kilogram per hour. Patient remains confused. CT abdomen/pelvis pending CBC/BMP: 07/08/17 0345 07/08/17 0345 Significant Findings Laboratory Tests Test 07/06/17 14:42 07/07/17 05:33 07/08/17 03:45 07/08/17 13:50 Blood Urea Nitrogen 33 MG/DL (7-18) 24 MG/DL (7-18) Creatinine 1.45 MG/DL (0.60-1.30) Random Glucose 242 MG/DL (74-106) 270 MG/DL (74-106) 204 MG/DL (74-106) Calcium Level 7.9 MG/DL (8.5-10.1) 8.0 MG/DL (8.5-10.1) 8.1 MG/DL (8.5-10.1) Phosphorus Level 1.1 MG/DL (2.5-4.9) 1.2 MG/DL (2.5-4.9) 2.3 MG/DL (2.5-4.9) 2.2 MG/DL (2.5-4.9) Sodium Level 148 MEQ/L (136-145) Chloride Level 118 MEQ/L (98-107) 110 MEQ/L (98-107) 109 MEQ/L (98-107) Estimat Glomerular Filtration Rate 51 ML/MIN (>89) 74 ML/MIN (>89) B-Hydroxybutyrate 2.63 MMOL/L (0.00-0.39) White Blood Count 12.3 TH/MM3 (4.0-11.0) Red Blood Count 3.89 MIL/MM3 (4.50-5.90) 4.03 MIL/MM3 (4.50-5.90) Hemoglobin 11.3 GM/DL (13.0-17.0) 12.0 GM/DL (13.0-17.0) Hematocrit 33.8 % (39.0-51.0) 34.9 % (39.0-51.0) Neutrophils (%) (Auto) 74.6 % (16.0-70.0) Neutrophils # (Auto) 9.2 TH/MM3 (1.8-7.7) Albumin 2.4 GM/DL (3.4-5.0) 2.5 GM/DL (3.4-5.0) Carbon Dioxide Level 20.7 MEQ/L (21.0-32.0) Lipase 8100 U/L (73-393) 94068 U/L (73-393) Monocytes (%) (Auto) 8.3 % (0.0-8.0) Imaging Last Impressions Pancreas Ultrasound 07/08/17 0000 Signed Impressions: Service Date/Time: Saturday, July 08, 2017 19:01 - CONCLUSION: 1. Mildly enlarged liver. Pancreas unremarkable sonographically. Small amount of pericholecystic fluid. Fernandez Miller MD Chest X-Ray 07/06/17 0000 Signed Impressions: Service Date/Time: June 04:37 - CONCLUSION: Mild interstitial opacities without consolidation, stable. Clemente Rouse MD Abdomen/Pelvis CT 07/05/17 0000 Signed Impressions: Service Date/Time: Wednesday, July 05, 2017 13:46 - CONCLUSION: 1. Bibasilar interstitial/alveolar opacities. 2. No acute inflammatory process. Dave Cui MD PE at Discharge GENERAL: NAD SKIN: Warm and dry. HEAD: Normocephalic. EYES: No scleral icterus. No injection or drainage. NECK: Supple, trachea midline. No JVD or lymphadenopathy. CARDIOVASCULAR: Regular rate and rhythm without murmurs, gallops, or rubs. RESPIRATORY: Breath sounds equal bilaterally. No accessory muscle use. GASTROINTESTINAL: Abdomen soft, non-tender, nondistended. MUSCULOSKELETAL: No cyanosis, or edema. BACK: Nontender without obvious deformity. No CVA tenderness. Hospital Course He was admitted secondary to Altered mental status/acute delirium secondary to DKA and alcohol abuse which he was placed on DKA protocol and treated with Precedex by critical care medicine. Patient was also found to have acute pancreatitis and treat accordingly. Acute renal failure improved with IV fluid hydration. DKA resolved and patient was switched to scale along with basal insulin. Precedex was subsequently discontinued and patient started on rally pack. Was also treated for community-acquired pneumonia with Antibiotics and will complete Z-Ko on discharge. DVT and GI prophylaxis were provided. Prior to discharge, patient's condition improved and vitals remained stable. Pt Condition on Discharge: Stable Discharge Disposition: Discharge Home Discharge Time: <= 30 minutes Discharge Instructions DIET: Follow Instructions for: Diabetic Diet Activities you can perform: Regular-No Restrictions Follow up Referrals: PCP Follow-up - 1 Week New Medications: Azithromycin (Azithromycin) 250 Mg Tab 250 MG PO DIRECTED for Infection, #6 TAB 0 Refills Take 2 tabs (500 mg) on day 1 then 1 tab daily x 4 days. Thiamine HCl (Gnp Vitamin B-1) 100 Mg Tab 100 MG PO DAILY for Alcohol Detox, #30 TAB Continued Medications: Amitriptyline (Amitriptyline) 50 Mg Tab 50 MG PO HS for Control Depression, #30 TAB 0 Refills Insulin Aspart Inj (Novolog Flexpen Inj) 300 Unit/3 Ml Pen 12 UNITS SQ TIDAC for Blood Sugar Management, #100 PEN 0 Refills (This prescription has been renewed) Insulin Detemir Inj (Levemir Inj) 1,000 unit/ 10 ML Vial 30 UNITS SQ BID for Blood Sugar Management, #100 VIAL 11 Refills (This prescription has been renewed) Do not mix with any other Insulin. Levothyroxine (Levothyroxine) 150 Mcg Tab 100 MCG PO DAILY for Thyroid, #30 TAB 0 Refills Pantoprazole (Protonix) 20 Mg Tab 40 MG PO DAILY for Reflux, #30 TAB 0 Refills Potassium Chloride ER (Potassium Chloride ER) 20 Meq Tab 40 MEQ PO DAILY for Electrolyte Replacement, #30 TAB 0 Refills Pregabalin (Lyrica) 300 Mg Cap 300 MG PO BID, #60 CAP 0 Refills Simvastatin (Simvastatin) 20 Mg Tab 20 MG PO DAILY for Cholesterol Management, #30 TAB 0 Refills Sucralfate (Carafate) 1 Gm Tab 1 GM PO TID for Ulcer Prevention, #90 TAB 0 Refills On empty stomach Dave Marquez MD Jul 09, 2017 12:18
[2017-07-10] MEDS ORDERED: INSULIN DETEMIR 100 UNITS/ML VIAL SQ SCH (09:00)
== END 2017-07-09 13:20 | disposition home or self-care (01) | DRG 637 ==
LOC: NEPE 11:14 → NEDH 13:17 → HIMW 16:22 → N07A 07-08 15:45
PROVIDERS: ADMIT Hospitalist; ATTEND Hospitalist
DX: E11.10 Type 2 diabetes mellitus with ketoacidosis without coma (principal); A41.9 Sepsis, unspecified organism; K85.90 Acute pancreatitis without necrosis or infection, unspecified; N17.9 Acute kidney failure, unspecified; J18.9 Pneumonia, unspecified organism; E87.0 Hyperosmolality and hypernatremia; E11.43 Type 2 diabetes mellitus with diabetic autonomic (poly)neuropathy; K31.84 Gastroparesis; Z79.4 Long term (current) use of insulin; E83.41 Hypermagnesemia; E83.39 Other disorders of phosphorus metabolism; E87.5 Hyperkalemia; K21.9 Gastro-esophageal reflux disease without esophagitis; E78.5 Hyperlipidemia, unspecified; Z87.891 Personal history of nicotine dependence; E03.9 Hypothyroidism, unspecified; M19.90 Unspecified osteoarthritis, unspecified site
CPT/HCPCS: 71010; 74176; 76705; 80048; 80053; 80061; 81001; 82010; 82140; 82150; 82550; 82805; 82948; 83605; 83690; 83735; 84100; 84132; 84155; 84443; 84484; 85007; 85025; 85027; 85384; 85730; 87040; 87449; 93005; 94150; 94664; 96361; 96365; 96375; C9113; J0610; J1644; J1815; J1817; J2405; J2543; J3370; J3411; J3475; J3480; J7030; J7040; J7050; J7613